=== PATIENT | female | born 1985 | race African-American/Black ===

== ENCOUNTER 2016-09-27 08:00 | Emergency (ER) | payer OTHER ==
[~2016-09-27] VITALS: Ht 165.1 cm; Wt 93.1 kg
[~2016-09-27 08:00] MED LIST: PROT40TA PO
[2016-09-27 08:02] VITALS: BP 142/80; PULSE 99; RESP 15; TEMP 98.2; O2SAT 98
--- NOTE | 2016-09-27 08:19 | PD ---
HPI Chief Complaint: Pain: Acute or Chronic Time Seen by Provider: 08:08 Travel History International Travel<30 days: No Contact w/Intl Traveler<30days: No Traveled to known affect area: No History of Present Illness HPI 31-year-old female complains of painful vein on the right leg, headache. Patient states the symptoms started 2 weeks ago. Patient states the pain is burning pain localized on the medial aspect of the right leg. Patient denies any pain radiation. Patient denies any recent injury. Patient denies any fever chills. Patient denies any chest pain or shortness of breath. Patient denies history of DVT or PE. Patient also complaining the headache for the past 2 weeks. Patient states that headache aching headache diffuse over the head. Patient denies any visual change. Patient denies any neck pain. Patient denies any focal weakness or numbness of extremity. Patient denies any recent head injury. PFSH Past Medical History Hx Anticoagulant Therapy: No Cardiovascular Problems: No Chemotherapy: No Chest Pain: Yes Cerebrovascular Accident: No Diabetes: No Diminished Hearing: No Respiratory: No Immunizations Current: Yes Ulcer: Yes ?: Not LMP: CURRENT : 3 Para: 3 Tubal Ligation: Yes (10/2009) Past Surgical History Gynecologic Surgery: Yes (TUBAL LIGATION OCT 2009) Social History Alcohol Use: No Tobacco Use: Yes (09/24 ppd) Substance Use: No Allergies-Medications (Allergen,Severity, Reaction): Coded Allergies: No Known Allergies (Verified , 09/27/16) Reported Meds & Prescriptions Reported Meds & Active Scripts Active Protonix (Pantoprazole Sodium) 40 Mg Tab 40 Mg PO DAILY Review of Systems General / Constitutional: No: Fever Eyes: No: Visual changes HENT: No: Headaches Cardiovascular: No: Chest Pain or Discomfort Respiratory: No: Shortness of Breath Gastrointestinal: No: Abdominal Pain Genitourinary: No: Dysuria Musculoskeletal: No: Pain Skin: No Rash Neurologic: No: Weakness Psychiatric: No: Depression Endocrine: No: Polydipsia Hematologic/Lymphatic: No: Easy Bruising Physical Exam Narrative GENERAL: Well-nourished, well-developed patient. SKIN: Warm and dry. HEAD: Normocephalic. EYES: No scleral icterus. No injection or drainage. Pupils 3 mm equal reactive. NECK: Supple, trachea midline. No JVD or lymphadenopathy. CARDIOVASCULAR: Regular rate and rhythm without murmurs, gallops, or rubs. RESPIRATORY: Breath sounds equal bilaterally. No accessory muscle use. GASTROINTESTINAL: Abdomen soft, non-tender, nondistended. MUSCULOSKELETAL: No cyanosis, or edema. BACK: Nontender without obvious deformity. No CVA tenderness. Patient has mild diffuse tenderness over medial aspect of the right thigh and right lower leg. No redness no heat noted. The tenderness localized around superficial vein area. Neurologic exam normal. Data Data Last Documented VS Vital Signs Date Time Temp Pulse Resp B/P Pulse Ox O2 Delivery O2 Flow Rate FiO2 09/27/16 10:59 60 16 114/61 100 Room Air 09/27/16 08:02 98.2 Orders Us Leg Venous Doppler (09/27/16 08:14) Electrocardiogram (09/27/16 ) MDM Medical Decision Making Medical Screen Exam Complete: Yes Emergency Medical Condition: Yes Interpretation(s) Last Impressions Lower Extremity Ultrasound 09/27/16 0814 Signed Impressions: Service Date/Time: September 10:09 - CONCLUSION: Normal examination. Terrell Huggins MD Differential Diagnosis Differential diagnosis including phlebitis, superficial thrombophlebitis, DVT. Narrative Course 31-year-old female with painful vein right leg. Diagnosis Primary Impression: Superficial phlebitis Additional Impression: Cephalgia Qualified Code: R51 - Acute nonintractable headache, unspecified headache type Patient Instructions: General Instructions Additional Instructions: Ibuprofen as needed for pain. Advised ROMEO hose stocking. Follow-up with local physician. Return if persistent problem or worse. Med/Other Pt SpecificInfo: Prescription(s) given Scripts Ibuprofen 600 Mg [id number] Mg PO Q8HR PRN (PAIN) #30 TAB Ref 0 Prov:Parvez Aguila MD 09/27/16 Disposition: 01 DISCHARGE HOME Condition: Stable Parvez Aguila MD Sep 27, 2016 08:18
--- NOTE | 2016-09-27 10:52 | RADRPT ---
EXAM DATE/TIME: 09/27/2016 10:09 [facility] COMPARISON: No previous studies available for comparison. INDICATIONS : Right leg pain. MEDICAL HISTORY : Right leg pain. SURGICAL HISTORY : Tubal ligation. ENCOUNTER: Initial ACUITY: 2 weeks PAIN SCORE: 8/10 LOCATION: Right leg. TECHNIQUE: Venous ultrasound of the leg was performed from the inguinal ligament to the proximal calf. Real-froy e, color Doppler and spectral tracing, compression and augmentation techniques were used. FINDINGS: There is normal compressibility of the deep venous system from the inguinal region to the proximal ca lf. No echogenic clot is seen in the lumen of the common femoral, femoral, popliteal, and posterior tibial veins. There is a normal response of the venous system to proximal and distal augmentation an d respiration. CONCLUSION: Normal examination. Terrell Huggins MD on September 27, 2016 at 10:37 Board Certified Radiologist. This report was verified electronically.
[2016-09-27 10:59] VITALS: BP 114/61; PULSE 60; RESP 16; O2SAT 100
--- NOTE | 2016-09-27 11:40 | EKG ---
Date Performed: 09/27/2016 Time Performed: 08:58:32 PTAGE: 31 years EKG: Sinus rhythm NORMAL ECG NO SIGNIFICANT CHANGE FROM PRIOR ELECTROCARDIOGRAM. PREVIOUS TRACING : 03/12/2016 18.11 DOCTOR: Yahir Valles Interpretating Date/Time 09/27/2016 11:38:53
[2016-09-27] MEDS ORDERED: IBUP-232 PO (12:53)
== END 2016-09-27 13:08 | disposition home or self-care (01) ==
LOC: NEPC 08:00
DX: I80.01 Phlebitis and thrombophlebitis of superficial vessels of right lower extremity (principal); R51 Headache; F17.210 Nicotine dependence, cigarettes, uncomplicated
CPT/HCPCS: 93005; 93971

== ENCOUNTER 2016-12-02 23:04 | Emergency (ER) | payer OTHER ==
[~2016-12-02 23:04] MED LIST changes: +IBUP-232 PO
[2016-12-02 23:06] VITALS: BP 115/68; PULSE 83; RESP 16; TEMP 98.3; O2SAT 100
== END 2016-12-03 00:05 | disposition left against medical advice (07) ==
LOC: NED 23:04
DX: R68.89 Other general symptoms and signs (principal)
CPT/HCPCS: 99281

== ENCOUNTER 2016-12-08 07:50 | Emergency (ER) | payer OTHER ==
[~2016-12-08] VITALS: Ht 165.1 cm; Wt 100.0 kg
[2016-12-08 07:52] VITALS: BP 133/69; PULSE 94; RESP 17; TEMP 97.8; O2SAT 96
--- NOTE | 2016-12-08 08:09 | PD ---
HPI . Cough, congestion and sore throat for 1 day Chief Complaint: Cold / Flu Symptoms Time Seen by Provider: 08:09 Travel History International Travel<30 days: No Contact w/Intl Traveler<30days: No Traveled to known affect area: No History of Present Illness HPI 31-year-old female with no significant past medical history here with complaints of cough, congestion and sore throat for 1 day. Patient says she just all of a sudden developed these symptoms. She is coughing frequently. She denies any fever or chills. She was around her friend who is sick. She has no other complaints. She is a smoker. [facility] Past Medical History Hx Anticoagulant Therapy: No Cardiovascular Problems: No Chemotherapy: No Chest Pain: Yes Cerebrovascular Accident: No Diabetes: No Diminished Hearing: No Respiratory: No Immunizations Current: Yes Ulcer: Yes ?: Not : 3 Para: 3 Tubal Ligation: Yes (10/2009) Past Surgical History Gynecologic Surgery: Yes (TUBAL LIGATION OCT 2009) Social History Alcohol Use: No Tobacco Use: Yes (09/24 ppd) Substance Use: No Allergies-Medications (Allergen,Severity, Reaction): Coded Allergies: No Known Allergies (Verified , 09/27/16) Reported Meds & Prescriptions Reported Meds & Active Scripts Active Prednisone 50 Mg Tab 50 Mg PO DAILY Augmentin (Amoxicillin-Clavulanate) 875-125 mg Tab 875 Mg PO BID not for use in CrCl <30 ml/min. Review of Systems General / Constitutional: No: Fever Eyes: No: Visual changes HENT: Positive: Sore Throat, Congestion, No: Headaches Cardiovascular: No: Chest Pain or Discomfort Respiratory: Positive: Cough, No: Shortness of Breath Gastrointestinal: No: Abdominal Pain Genitourinary: No: Dysuria Musculoskeletal: No: Pain Skin: No Rash Neurologic: No: Weakness Psychiatric: No: Depression Endocrine: No: Polydipsia Hematologic/Lymphatic: No: Easy Bruising Physical Exam Narrative GENERAL: AAO x 3, no acute distress, Well-nourished, well-developed patient. very comfortable. Does not appear ill or toxic SKIN: Warm and dry. No visible rashes or bruising. HEAD: Normocephalic and atraumatic. EYES: No scleral icterus. No injection or drainage. EOM intact, PERRLA ENT: No nasal drainage noted. Mucous membranes pink. Airway patent. TMs normal bilaterally. No posterior pharynx erythema or edema, or exudates. There is maxillary sinus tenderness. NECK: Supple, trachea midline. No JVD. No significant lymphadenopathy. CARDIOVASCULAR: Regular rate and rhythm without murmurs, gallops, or rubs. RESPIRATORY: Breath sounds equally diminished bilaterally. No accessory muscle use. No rhonchi or rales. No wheezing. Dry cough heard on examination. GASTROINTESTINAL: Abdomen soft, non-tender, nondistended. EXTREMITIES: No cyanosis or edema. BACK: Nontender without obvious deformity. No CVA tenderness. PSYCH: AAO x 3, normal affect. Data Data Last Documented VS Vital Signs Date Time Temp Pulse Resp B/P Pulse Ox O2 Delivery O2 Flow Rate FiO2 12/08/16 07:52 97.8 94 17 133/69 96 Room Air [facility] Medical Decision Making Medical Screen Exam Complete: Yes Emergency Medical Condition: Yes Medical Record Reviewed: Yes Differential Diagnosis Acute sinusitis, acute bronchitis less likely pneumonia, less likely influenza Narrative Course 31-year-old female with no significant past medical history here with complaints of cough, congestion and sore throat for 1 day. Patient says she just all of a sudden developed these symptoms. She is coughing frequently. She denies any fever or chills. She was around her friend who is sick. She has no other complaints. She is a smoker. Patient seen and examined. She appears to have acute sinusitis and a bronchitis. I will go ahead and treat with antibiotics and prednisone. She has been advised that this cough can last for 6-8 weeks. She was instructed to follow-up with primary care provider. Patient verbalized understanding of instructions, questions were answered, and thanked me for their care. I advised them if their condition worsens, please return to the nearest emergency room for further care. Diagnosis Primary Impression: Acute sinusitis Qualified Code: J01.00 - Acute maxillary sinusitis, recurrence not specified Additional Impression: Acute bronchitis Qualified Code: J20.9 - Acute bronchitis, unspecified organism Patient Instructions: General Instructions Additional Instructions: As we discussed the cough can last 6-8 weeks. Take medications as prescribed. If you are a smoker, try to quit. Follow up with your primary care provider. If you develop sudden onset or worsening of shortness or breath, please go to the nearest emergency room. Please return to emergency department if your symptoms return or worsen. Follow up with your primary care provider. Take medications as prescribed. Med/Other Pt SpecificInfo: Prescription(s) given Scripts Prednisone 50 Mg Tab50 Mg PO DAILY #5 TAB Prov:Tavon Black MD 12/08/16 Amoxicillin-Clavulanate (Augmentin)875-125 mg [id number] Mg PO BID #20 TAB not for use in CrCl <30 ml/min. Prov:Tavon Black MD 12/08/16 Disposition: 01 DISCHARGE HOME Condition: Stable Fior Samson Dec 08, 2016 08:09
[2016-12-08] MEDS ORDERED: PRED50 PO (08:16)
[2016-12-08] MEDS ORDERED: AUGM875T PO (08:16)
== END 2016-12-08 08:32 | disposition home or self-care (01) ==
LOC: NEPB 07:50
DX: J01.90 Acute sinusitis, unspecified (principal); J20.9 Acute bronchitis, unspecified
CPT/HCPCS: 99283

== ENCOUNTER 2017-03-03 00:31 | Emergency (ER) | payer OTHER ==
[~2017-03-03] VITALS: Ht 165.1 cm; Wt 95.6 kg
[~2017-03-03 00:31] MED LIST changes: +AUGM875T PO; -IBUP-232 PO; +PRED50 PO; -PROT40TA PO
[2017-03-03 00:38] VITALS: BP 128/88; PULSE 79; RESP 18; TEMP 98.2; O2SAT 100
[2017-03-03] MEDS ORDERED: ZANT300T PO (00:58)
[2017-03-03] MEDS ORDERED: PRIL20TA2 PO (00:58)
[2017-03-03] MEDS ORDERED: SODIUM CHLORIDE 0.9% FLUSH 10 ML FLUSH IVF PRN (01:00)
[2017-03-03 01:16] LABS: AUTOMATED NEUTROPHIL # 3.7 TH/MM3 (1.8-7.7); BASOPHIL # 0.1 TH/MM3 (0-0.2); BASOPHIL % 1.2 % (0.0-2.0); EOSINOPHIL # 0.5 TH/MM3 (0-0.4); EOSINOPHIL % 5.9 % (0.0-4.0); HEMATOCRIT 43.3 % (35.0-46.0); HEMO FLAGS DIFF FINAL; LYMPH % 39.2 % (9.0-44.0); MEAN CELL VOLUME 93.5 FL (80.0-100.0); MEAN CORPUSCULAR HEMOGLOBIN 31.4 PG (27.0-34.0); MEAN CORPUSCULAR HGB CONC 33.6 % (32.0-36.0); MONO % 5.8 % (0.0-8.0); NEUT % 47.9 % (16.0-70.0); PLATELET COUNT 370 TH/MM3 (150-450); RED BLOOD COUNT 4.63 MIL/MM3 (4.00-5.30); RED CELL DISTRIBUTION WIDTH 12.4 % (11.6-17.2); WHITE BLOOD COUNT 7.8 TH/MM3 (4.0-11.0)
--- NOTE | 2017-03-03 01:16 | PD ---
HPI Chief Complaint: Respiratory Symptoms Time Seen by Provider: 00:57 Travel History International Travel<30 days: No Contact w/Intl Traveler<30days: No Traveled to known affect area: No History of Present Illness HPI 31 year-old female presents to the emergency department by private transportation for complaint of shortness of breath developing just prior to arrival to the emergency department. Symptoms developed at rest. No report of injury. No recent febrile illness or productive cough. Pain worsens with palpation but is not reproducible with palpation of the chest wall. No report of long distance travel protracted bed rest surgical procedure or lower extremity pain or swelling. No personal history family history of clotting disorder. Patient does not report any dyspnea on exertion, orthopnea, or PND. No prior history of CAD HTN dyslipidemia diabetes asthma bronchitis pneumonia or PE. Patient is a no medications for symptom relief. Patient admits to tobacco use. Pain is rated as 5/10 in intensity. Nonradiating. Patient reports feeling near syncopal with associated dyspnea. PFSH Past Medical History Narrative Medical Chest pain; Ab0; tubal ligation; tobaccoism; nursing notes reviewed Hx Anticoagulant Therapy: No Cardiovascular Problems: No Chemotherapy: No Chest Pain: Yes Cerebrovascular Accident: No Diabetes: No Diminished Hearing: No Respiratory: No Immunizations Current: Yes Ulcer: Yes ?: Not LMP: "Last monh" : 3 Para: 3 Tubal Ligation: Yes (10/2009) Past Surgical History Gynecologic Surgery: Yes (TUBAL LIGATION OCT 2009) Social History Alcohol Use: No Tobacco Use: Yes (1 PPD) Substance Use: No Allergies-Medications (Allergen,Severity, Reaction): Coded Allergies: No Known Allergies (Verified , 03/03/17) Reported Meds & Prescriptions Reported Meds & Active Scripts Active Reported Zantac (Ranitidine HCl) 300 Mg Tab 300 Mg PO DAILY Prilosec (Omeprazole Magnesium) 20 Mg Tab 40 Mg PO DAILY Review of Systems Except as stated in HPI: all other systems reviewed are Neg Physical Exam Narrative GENERAL: Well-developed well-nourished female in no acute distress no respiratory distress; no stridor or hoarseness; no accessory respiratory muscle use. Patient able to speak in complete sentences. Triage vital signs within normal range. SKIN: Warm and dry. HEAD: Normocephalic. EYES: No scleral icterus. No injection or drainage. NECK: Supple, trachea midline. No JVD or lymphadenopathy. CARDIOVASCULAR: Regular rate and rhythm without murmurs, gallops, or rubs. RESPIRATORY: Breath sounds equal bilaterally. No accessory muscle use. GASTROINTESTINAL: Abdomen soft, non-tender, nondistended. MUSCULOSKELETAL: No cyanosis, or edema. BACK: Nontender without obvious deformity. No CVA tenderness. Data Data Last Documented VS Vital Signs Date Time Temp Pulse Resp B/P Pulse Ox O2 Delivery O2 Flow Rate FiO2 03/03/17 01:45 86 17 126/70 99 Room Air 03/03/17 00:38 98.2 Orders Electrocardiogram (03/03/17 00:57) Basic Metabolic Panel (Bmp) (03/03/17 00:57) Ckmb (Isoenzyme) Profile (03/03/17 00:57) Complete Blood Count With Diff (03/03/17 00:57) Magnesium (Mg) (03/03/17 00:57) Prothrombin Time / Inr (Pt) (03/03/17 00:57) Act Partial Throm Time (Ptt) (03/03/17 00:57) Troponin I (03/03/17 00:57) Chest, Single Ap (03/03/17 00:57) Ecg Monitoring (03/03/17 00:57) Iv Access Insert/Monitor (03/03/17 00:57) Oximetry (03/03/17 00:57) Sodium Chloride 0.9% Flush (Ns Flush) (03/03/17 01:00) Ed Urine Pregnancytest Poc (03/03/17 00:57) Ketorolac Inj (Toradol Inj) (03/03/17 01:45) CKMB (03/03/17 01:10) CKMB% (03/03/17 01:10) D-Dimer (03/03/17 01:38) Sodium Chlorid 0.9% 500 Ml Inj (Ns 500 M (03/03/17 01:45) Labs Laboratory Tests Test 03/03/17 01:10 White Blood Count 7.8 TH/MM3 Red Blood Count 4.63 MIL/MM3 Hemoglobin 14.6 GM/DL Hematocrit 43.3 % Mean Corpuscular Volume 93.5 FL Mean Corpuscular Hemoglobin 31.4 PG Mean Corpuscular Hemoglobin 33.6 % Concent Red Cell Distribution Width 12.4 % Platelet Count 370 TH/MM3 Mean Platelet Volume 7.3 FL Neutrophils (%) (Auto) 47.9 % Lymphocytes (%) (Auto) 39.2 % Monocytes (%) (Auto) 5.8 % Eosinophils (%) (Auto) 5.9 % Basophils (%) (Auto) 1.2 % Neutrophils # (Auto) 3.7 TH/MM3 Lymphocytes # (Auto) 3.0 TH/MM3 Monocytes # (Auto) 0.5 TH/MM3 Eosinophils # (Auto) 0.5 TH/MM3 Basophils # (Auto) 0.1 TH/MM3 CBC Comment DIFF FINAL Differential Comment Prothrombin Time 9.5 SEC Prothromb Time International 0.9 RATIO Ratio Activated Partial 28.6 SEC Thromboplast Time D-Dimer Quantitative (PE/DVT) LESS THAN 0.19 MG/L FEU Sodium Level 139 MEQ/L Potassium Level 4.7 MEQ/L Chloride Level 104 MEQ/L Carbon Dioxide Level 27.9 MEQ/L Anion Gap 7 MEQ/L Blood Urea Nitrogen 9 MG/DL Creatinine 1.30 MG/DL Estimat Glomerular Filtration 59 ML/MIN Rate Random Glucose 89 MG/DL Calcium Level 8.8 MG/DL Magnesium Level 2.4 MG/DL Total Creatine Kinase 256 U/L Creatine Kinase MB 0.8 NG/ML Creatine Kinase MB % 0.3 % Troponin I LESS THAN 0.02 NG/ML MDM Medical Decision Making Medical Screen Exam Complete: Yes Emergency Medical Condition: Yes Medical Record Reviewed: Yes Interpretation(s) EKG: Normal sinus rhythm rate [address] elevation or injury pattern change or ectopy noted CXR: nad POC hcg: negative CK; 256, elevated; MB%: 0.3%; troponin I: less than 0.02, not elevated Vital Signs Date Time Temp Pulse Resp B/P Pulse Ox O2 Delivery O2 Flow Rate FiO2 03/03/17 01:45 86 17 126/70 99 Room Air 03/03/17 01:12 Room Air 03/03/17 00:52 99 Room Air 03/03/17 00:38 98.2 79 18 128/88 100 CBC & BMP Diagram 03/03/17 01:10 coags: wnl d-dimer: less than 0.19, not elevated Differential Diagnosis Dyspnea, reactive airways disease, bronchitis, pneumonia, PE, ACS, anemia, dehydration, arrhythmia Narrative Course Patient presents in no acute distress no respiratory distress lung sounds clear to auscultation airway is patent room air O2 saturation 99-100%; EKG performed sinus rhythm without injury pattern; chest x-ray ordered along with basic labs Patient resting comfortably voicing no concerns or complaints has received a one -time dose of Toradol IV No discomfort 0/10 pain; no shortness of breath at rest room air O2 saturation 99% Serum creatinine mildly elevated at 1.30 and CK total is elevated at 256 but normal MB percent is 0.3% not elevated Patient informed the EKG reveals no acute injury pattern change; chest x-ray shows no lobar infiltrate effusion of pneumothorax or vascular congestion; lab values in normal range except for renal insufficiency with a creatinine of 1.30 and patient given fluid bolus cardiac enzymes are found to be in normal range except for total CK of 256 most likely reflective of skeletal muscle with normal MB percent of 0.3%. D-dimer is not elevated at less than 0.19. At this point in time symptoms most likely reflect mild dehydration atypical chest pain and patient is stable for outpatient management. Patient given trial of ambulating about the emergency department to see if activity is able to reproduce symptoms of presentation ---> no dyspnea, no discomfort, patient feels well and desires discharge to home. Diagnosis Primary Impression: Shortness of breath Additional Impression: Atypical chest pain Referrals: Primary Care Physician call for appointment Patient Instructions: General Instructions Departure Forms: Tests/Procedures, Work Release Special Instructions: no work x 1 day Additional Instructions: Increase fluid hydration Follow-up with primary care provider No work times one day Return to the emergency department for any concerns or change in condition Monitor temperature every 4 hours with thermometer take as needed acetaminophen/ Tylenol for fever 100.4F or greater or may take as needed ibuprofen/Advil/ Motrin for fever 100.4F or greater or for pain associated with inflammation Med/Other Pt SpecificInfo: No Change to Meds Disposition: 01 DISCHARGE HOME Condition: Stable Leona Winters MD Mar 03, 2017 01:16
--- NOTE | 2017-03-03 01:26 | RADHPO ---
EXAM DATE/TIME: 03/03/2017 01:01 [facility] COMPARISON: CHEST SINGLE AP, March 12, 2016, 18:41. INDICATIONS : Chest pain. MEDICAL HISTORY : None. SURGICAL HISTORY : None. ENCOUNTER: Initial ACUITY: 1 day PAIN SCORE: 5/10 LOCATION: Bilateral chest FINDINGS: A single view of the chest demonstrates the lungs to be symmetrically aerated without evidence of mas s, infiltrate or effusion. The cardiomediastinal contours are unremarkable. Osseous structures are intact. CONCLUSION: No acute disease. Melquiades Hatfield MD on March 03, 2017 at 1:25 Board Certified Radiologist. This report was verified electronically.
[2017-03-03 01:28] LABS: CHLORIDE 104 MEQ/L (98-107); POTASSIUM 4.7 MEQ/L (3.5-5.1); SODIUM (NA) 139 MEQ/L (136-145)
[2017-03-03 01:31] LABS: ANION GAP 7 MEQ/L (5-15); BICARBONATE 27.9 MEQ/L (21.0-32.0); MAGNESIUM 2.4 MG/DL (1.5-2.5)
[2017-03-03 01:32] LABS: BLOOD UREA NITROGEN 9 MG/DL (7-18)
[2017-03-03 01:33] LABS: APTT (PATIENT) 28.6 SEC (24.3-30.1); INTERNATIONAL NORMALIZED RATIO 0.9 RATIO; PROTHROMBIN TIME - PATIENT 9.5 SEC (9.8-11.6)
[2017-03-03 01:35] LABS: GLOMERULAR FILTRATION RATE 59 ML/MIN (>89)
[2017-03-03 01:38] LABS: CREATINE KINASE 256 U/L (26-192)
[2017-03-03 01:45] VITALS: BP 126/70; PULSE 86; RESP 17; O2SAT 99
[2017-03-03] MEDS ORDERED: SODIUM CHLORID 0.9% 500 ML INJ 500 ML IV ONE (01:45)
[2017-03-03] MEDS ORDERED: KETOROLAC TROMETHAMINE 30 MG/ML (IVP) VIAL IV PUSH ONE (01:45)
[2017-03-03 01:50] LABS: CKMB 0.8 NG/ML (0.5-3.6)
[2017-03-03 02:51] VITALS: BP 104/69
[2017-03-03 02:54] VITALS: RESP 17
--- NOTE | 2017-03-03 09:33 | EKG ---
Date Performed: 03/03/2017 Time Performed: 01:05:36 PTAGE: 31 years EKG: Sinus rhythm . Lead(s) unsuitable for analysis: V1 V2 Normal ECG based on available leads NO PREVIOUS TRACING DOCTOR: Javier Osborn Interpretating Date/Time 03/03/2017 09:29:02
== END 2017-03-03 02:59 | disposition home or self-care (01) ==
LOC: PHED 00:31
DX: R06.02 Shortness of breath (principal); R07.89 Other chest pain; R06.00 Dyspnea, unspecified; F17.210 Nicotine dependence, cigarettes, uncomplicated
CPT/HCPCS: 71010; 80048; 82550; 82552; 83735; 84484; 84703; 85025; 85379; 85610; 85730; 93005; 96361; 96374; 99285; J1885; J7040

== ENCOUNTER 2017-04-04 21:26 | Emergency (ER) | payer OTHER ==
[~2017-04-04] VITALS: Ht 165.1 cm; Wt 95.0 kg
[~2017-04-04 21:26] MED LIST changes: -AUGM875T PO; -PRED50 PO; +PRIL20TA2 PO; +ZANT300T PO
[2017-04-04 22:10] VITALS: BP 117/81; PULSE 91; RESP 18; TEMP 98.4; O2SAT 100
[2017-04-04 22:23] VITALS: BP 117/81; PULSE 91; RESP 18; TEMP 98.4; O2SAT 100
[2017-04-04] MEDS ORDERED: HYDROmorphone HCL PF 1 MG/ML VIAL IV PUSH ONE (22:30)
[2017-04-04] MEDS ORDERED: SODIUM CHLOR 0.9% 1000 ML INJ 1,000 ML IV SCH (22:30)
[2017-04-04] MEDS ORDERED: ONDANSETRON HCL 4 MG/2 ML VIAL IV PUSH ONE (22:30)
--- NOTE | 2017-04-04 22:30 | PD ---
HPI Chief Complaint: Abdominal Pain Time Seen by Provider: 22:26 Travel History International Travel<30 days: No Contact w/Intl Traveler<30days: No Traveled to known affect area: No History of Present Illness HPI This 31-year-old female is complaining of abdominal pain. She says that about 2 hours ago she ate some cheesecake. He had a sudden onset of pain and vomited. She has been having some epigastric discomfort since then. She has a history of ulcer disease. There is a strong family history of ulcers. 5-6 months ago she had endoscopy in [place] and was found to have an ulcer. She has descriptions for Prilosec and Zantac but admits to taking them somewhat sporadically. She does not take any anti-inflammatory medicine she does drink occasionally. She has not had alcohol today. She says the pain she is having now is different than her usual pain she is had with her ulcer. Severe and has been fairly persistent. She is not aware of ever having had ultrasound for gallbladder. She is not sexually active with men [facility] Past Medical History Hx Anticoagulant Therapy: No Cardiovascular Problems: No Chemotherapy: No Chest Pain: Yes Cerebrovascular Accident: No Diabetes: No Diminished Hearing: No Respiratory: No Immunizations Current: Yes Ulcer: Yes ?: Unknown : 3 Para: 3 Tubal Ligation: Yes (10/2009) Past Surgical History Gynecologic Surgery: Yes (TUBAL LIGATION OCT 2009) Social History Alcohol Use: No Tobacco Use: Yes (1 PPD) Substance Use: No Allergies-Medications (Allergen,Severity, Reaction): Coded Allergies: No Known Allergies (Verified , 04/04/17) Reported Meds & Prescriptions Reported Meds & Active Scripts Active Reported Zantac (Ranitidine HCl) 300 Mg Tab 300 Mg PO DAILY Prilosec (Omeprazole Magnesium) 20 Mg Tab 40 Mg PO DAILY Review of Systems General / Constitutional: No: Fever, Chills Eyes: No: Diploplia, Blurred Vision HENT: No: Headaches, Vertigo Cardiovascular: No: Chest Pain or Discomfort, Palpitations Respiratory: No: Cough, Shortness of Breath Gastrointestinal: Positive: Nausea, Vomiting, Abdominal Pain Genitourinary: No: Urgency, Nocturia Musculoskeletal: No: Myalgias, Arthralgias Skin: No Rash, No Itching Neurologic: No: Weakness Hematologic/Lymphatic: No: Easy Bruising Physical Exam Narrative GENERAL: Well-developed female SKIN: Focused skin assessment warm/dry. HEAD: Atraumatic. Normocephalic. EYES: Pupils equal and round. No scleral icterus. No injection or drainage. ENT: No nasal bleeding or discharge. Mucous membranes pink and moist. NECK: Trachea midline. No JVD. CARDIOVASCULAR: Regular rate and rhythm. No murmur appreciated. RESPIRATORY: No accessory muscle use. Clear to auscultation. Breath sounds equal bilaterally. GASTROINTESTINAL: Abdomen soft, is epigastric tenderness nondistended. Hepatic and splenic margins not palpable. MUSCULOSKELETAL: No obvious deformities. No clubbing. No cyanosis. No edema. NEUROLOGICAL: Awake and alert. No obvious cranial nerve deficits. Motor grossly within normal limits. Normal speech. PSYCHIATRIC: Appropriate mood and affect; insight and judgment normal. Data Data Last Documented VS Vital Signs Date Time Temp Pulse Resp B/P Pulse Ox O2 Delivery O2 Flow Rate FiO2 04/04/17 23:23 18 04/04/17 23:16 79 111/64 96 Room Air 04/04/17 22:23 98.4 Orders Complete Blood Count With Diff (04/04/17 22:26) Comprehensive Metabolic Panel (04/04/17 22:26) Lipase (04/04/17 22:26) Urinalysis - C+S If Indicated (04/04/17 22:26) Ct Abd/Pel W Iv Contrast(Rout) (04/04/17 22:26) Sodium Chlor 0.9% 1000 Ml Inj (Ns 1000 M (04/04/17 22:30) Ondansetron Inj (Zofran Inj) (04/04/17 22:30) Hydromorphone Pf Inj (Dilaudid Pf Inj) (04/04/17 22:30) Iohexol 350 Inj (Omnipaque 350 Inj) (04/04/17 23:33) Labs Laboratory Tests Test 04/04/17 22:50 White Blood Count 7.8 TH/MM3 Red Blood Count 4.14 MIL/MM3 Hemoglobin 13.1 GM/DL Hematocrit 38.1 % Mean Corpuscular Volume 92.1 FL Mean Corpuscular Hemoglobin 31.6 PG Mean Corpuscular Hemoglobin 34.3 % Concent Red Cell Distribution Width 11.8 % Platelet Count 346 TH/MM3 Mean Platelet Volume 7.3 FL Neutrophils (%) (Auto) 56.8 % Lymphocytes (%) (Auto) 27.0 % Monocytes (%) (Auto) 7.3 % Eosinophils (%) (Auto) 4.4 % Basophils (%) (Auto) 4.5 % Neutrophils # (Auto) 4.4 TH/MM3 Lymphocytes # (Auto) 2.1 TH/MM3 Monocytes # (Auto) 0.6 TH/MM3 Eosinophils # (Auto) 0.3 TH/MM3 Basophils # (Auto) 0.4 TH/MM3 CBC Comment DIFF FINAL Differential Comment Sodium Level 141 MEQ/L Potassium Level 3.5 MEQ/L Chloride Level 106 MEQ/L Carbon Dioxide Level 27.6 MEQ/L Anion Gap 7 MEQ/L Blood Urea Nitrogen 11 MG/DL Creatinine 0.94 MG/DL Estimat Glomerular Filtration 85 ML/MIN Rate Random Glucose 89 MG/DL Calcium Level 8.9 MG/DL Total Bilirubin 0.5 MG/DL Aspartate Amino Transf 20 U/L (AST/SGOT) Alanine Aminotransferase 36 U/L (ALT/SGPT) Alkaline Phosphatase 56 U/L Total Protein 7.5 GM/DL Albumin 3.7 GM/DL Lipase 135 U/L [facility] Medical Decision Making Medical Screen Exam Complete: Yes Emergency Medical Condition: Yes Medical Record Reviewed: Yes Differential Diagnosis Differential includes gastritis, ulcer disease, pancreatitis, biliary colic Narrative Course Lipase is normal. Liver function tests are normal. CT scan does not show any evidence of free air. Gallbladder appears normal. She was noted to have some abnormality in the liver a low density lesion in the nodular enhancement that further workup is not recommended Patient was given pain medication with improvement. The importance that she take her Zantac and Prilosec on a regular basis was stressed to the patient Diagnosis Primary Impression: Peptic ulcer disease Departure Forms: Tests/Procedures Additional Instructions: Take medications as directed Scripts Ondansetron Odt (Zofran Odt)4 Mg Tab4 Mg SL Q6HR PRN (Nausea/Vomiting) #10 TAB Ref 0 Prov:Chuy Haro MD 04/04/17 Disposition: 01 DISCHARGE HOME Condition: Stable Chuy Haro MD Apr 04, 2017 22:30
[2017-04-04 23:08] LABS: AUTOMATED NEUTROPHIL # 4.4 TH/MM3 (1.8-7.7); BASOPHIL # 0.4 TH/MM3 (0-0.2); BASOPHIL % 4.5 % (0.0-2.0); EOSINOPHIL # 0.3 TH/MM3 (0-0.4); EOSINOPHIL % 4.4 % (0.0-4.0); HEMATOCRIT 38.1 % (35.0-46.0); HEMO FLAGS DIFF FINAL; LYMPHOCYTE # 2.1 TH/MM3 (1.0-4.8); MEAN CELL VOLUME 92.1 FL (80.0-100.0); MEAN CORPUSCULAR HEMOGLOBIN 31.6 PG (27.0-34.0); MEAN CORPUSCULAR HGB CONC 34.3 % (32.0-36.0); MONO % 7.3 % (0.0-8.0); NEUT % 56.8 % (16.0-70.0); PLATELET COUNT 346 TH/MM3 (150-450); RED BLOOD COUNT 4.14 MIL/MM3 (4.00-5.30); RED CELL DISTRIBUTION WIDTH 11.8 % (11.6-17.2); WHITE BLOOD COUNT 7.8 TH/MM3 (4.0-11.0)
[2017-04-04 23:16] VITALS: BP 111/64; PULSE 79; RESP 16; O2SAT 96
[2017-04-04 23:16] LABS: CHLORIDE 106 MEQ/L (98-107); POTASSIUM 3.5 MEQ/L (3.5-5.1); SODIUM (NA) 141 MEQ/L (136-145)
[2017-04-04 23:20] LABS: ANION GAP 7 MEQ/L (5-15); BICARBONATE 27.6 MEQ/L (21.0-32.0); BLOOD UREA NITROGEN 11 MG/DL (7-18)
[2017-04-04 23:22] LABS: ALT (GPT) 36 U/L (10-53)
[2017-04-04 23:23] VITALS: RESP 18
[2017-04-04 23:23] LABS: AST (GOT) 20 U/L (15-37); GLOMERULAR FILTRATION RATE 85 ML/MIN (>89)
[2017-04-04 23:24] LABS: TOTAL BILIRUBIN ADULT 0.5 MG/DL (0.2-1.0)
[2017-04-04 23:25] LABS: ALKALINE PHOSPHATASE 56 U/L (45-117)
[2017-04-04] MEDS ORDERED: IOHEXOL 350 MG/ML 10 ML VIAL (for RAD DIAG) IV ONE (23:33)
--- NOTE | 2017-04-04 23:40 | RADRPT ---
EXAM DATE/TIME: 04/04/2017 22:52 [facility] COMPARISON: CT ABDOMEN & PELVIS W/O CONTRAST, August 14, 2016, 1:46. INDICATIONS : Epigastric pain with vomiting IV CONTRAST: 96 cc Omnipaque 350 (iohexol) IV ORAL CONTRAST: No oral contrast ingested. RADIATION DOSE: 16.22 CTDIvol (mGy) MEDICAL HISTORY : None SURGICAL HISTORY : Tubal ligation. ENCOUNTER: Initial ACUITY: 1 day PAIN SCALE: 9/10 LOCATION: medial epigastral TECHNIQUE: Volumetric scanning of the abdomen and pelvis was performed. Using automated exposure control and ad justment of the mA and/or kV according to patient size, radiation dose was kept as low as reasonably achievable to obtain optimal diagnostic quality images. DICOM format image data is available electro nically for review and comparison. FINDINGS: A 1.7 cm low-density mass in the central liver with peripheral nodular enhancement felt to represent a hemangioma is identified. 4 mm low-density right lobe lesion and a 4 mm low-density right lobe lesi on on image 27. Adrenal glands, kidneys, spleen, pancreas are unremarkable. No inflammatory changes a re seen. The appendix is normal. No adenopathy or aneurysm. Urinary bladder, uterus and ovaries are u nremarkable. Small amount of free fluid in the pelvis. No evidence of bowel obstruction or free intra peritoneal air. Small fat-containing right inguinal hernia. Lung bases are clear. Osseous structures are intact. CONCLUSION: 1. Small amount of free fluid in the pelvis. 2. 3. Right lobe low density lesion of the liver with nodular enhancement, and two low density sub5mm le sions No further work-up is generally needed for incidentally detected benign-appearing liver lesion s in low risk individuals, including lesions exhibiting flash filling. This patient is classified as low risk based on the reported history, including age <40 and absence of hepatic risk factors/sympto ms. These general recommendations do not apply to all patients, so that correlation with clinical in formation is required. Reference: 4. Ramila LL, Mana SG, Priscilla RM et al; Managing Incidental Findings on Abdominal CT: Luci hurt of the ACR Incidental Findings Committee. J Am Inocente Radiol 2010;7:754-773.. 5. No inflammatory changes are identified in the abdomen or pelvis. Victor Manuel Fitch MD on April 04, 2017 at 23:33 Board Certified Radiologist. This report was verified electronically.
[2017-04-04] MEDS ORDERED: ZOFR4TAB3 SL (23:45)
== END 2017-04-05 00:24 | disposition home or self-care (01) ==
LOC: PHED 21:26
DX: K27.9 Peptic ulcer, site unspecified, unspecified as acute or chronic, without hemorrhage or perforation (principal)
CPT/HCPCS: 74177; 80053; 83690; 85025; 96361; 96374; 96375; 99285; J1170; J2405; J7030; Q9967

== ENCOUNTER 2017-05-13 10:38 | Emergency (ER) | payer OTHER ==
[~2017-05-13] VITALS: Ht 165.1 cm; Wt 97.0 kg
[~2017-05-13 10:38] MED LIST changes: +ZOFR4TAB3 SL
[2017-05-13 10:50] VITALS: BP 130/61; PULSE 83; RESP 16; TEMP 97.8; O2SAT 98
[2017-05-13] MEDS ORDERED: INDO50CA PO (12:00)
--- NOTE | 2017-05-13 12:00 | PD ---
HPI Chief Complaint: Musculoskeletal Complaint Time Seen by Provider: 11:48 Travel History International Travel<30 days: No Contact w/Intl Traveler<30days: No Traveled to known affect area: No History of Present Illness HPI 31-year-old female presents to the emergency room for evaluation of left knee pain and swelling for the past 2 days. Patient denies any trauma or injury. States she woke up with pain 2 days ago and the swelling started yesterday. Pain is generalized. It is worse with any ambulation and range of motion. She has been taking Tylenol without relief of symptoms. She put a knee brace on which helped the swelling a little bit. She denies paresthesias. No history of gout or pseudogout. PFSH Past Medical History Hx Anticoagulant Therapy: No Cardiovascular Problems: No Chemotherapy: No Chest Pain: Yes Cerebrovascular Accident: No Diabetes: No Diminished Hearing: No Respiratory: No Immunizations Current: Yes Ulcer: Yes ?: Not LMP: 05/02/17 : 3 Para: 3 Tubal Ligation: Yes (10/2009) Past Surgical History Surgical History: No Previous Surgery Gynecologic Surgery: Yes (TUBAL LIGATION OCT 2009) Social History Alcohol Use: No Tobacco Use: Yes (1 PPD) Substance Use: No Allergies-Medications (Allergen,Severity, Reaction): Coded Allergies: No Known Allergies (Verified , 05/13/17) Reported Meds & Prescriptions Reported Meds & Active Scripts Active No Active Prescriptions or Reported Medications Review of Systems Except as stated in HPI: all other systems reviewed are Neg Physical Exam Narrative GENERAL: Well-nourished, well-developed female in no acute distress. Afebrile. Ambulatory. SKIN: Focused skin assessment warm/dry. No erythema or ecchymosis. HEAD: Normocephalic. EYES: No scleral icterus. No injection or drainage. NECK: Supple, trachea midline. No JVD or lymphadenopathy. CARDIOVASCULAR: Regular rate and rhythm without murmurs, gallops, or rubs. RESPIRATORY: Breath sounds equal bilaterally. No accessory muscle use. MUSCULOSKELETAL: No cyanosis. 2+ dorsalis pedis pulse in the left. No obvious effusion. Very mild edema of the left knee. Limited range of motion of the knee secondary to pain; patient has full extension and can flex to approximately 75. Negative anterior and posterior short test. No pain with varus stress. Slight pain with valgus stress. Data Data Last Documented VS Vital Signs Date Time Temp Pulse Resp B/P (MAP) Pulse Ox O2 Delivery O2 Flow Rate FiO2 05/13/17 10:50 97.8 83 16 130/61 (84) 98 MDM Medical Decision Making Medical Screen Exam Complete: Yes Emergency Medical Condition: Yes Medical Record Reviewed: Yes Differential Diagnosis Sprain, strain, arthritis, malingering, fracture unlikely Narrative Course 31-year-old female presents to the emergency room for evaluation of left knee pain and swelling for the past 2 days. Patient denies trauma or injury. Physical exam reveals very mild swelling of the left knee without erythema, ecchymosis, or obvious effusion. No bony tenderness to palpation. Patient has limited range of motion secondary pain. No concern for septic arthritis. Left lower extremity is neurovascularly intact with 2+ dorsalis pedis pulse. Given no injury and very mild edema, this could be inflammatory arthritis. No indication for imaging at this time. Patient discharged with prescription for indomethacin and orthopedic instructions. Told to follow-up the primary care physician or return for worsening symptoms. She understands and agrees to plan. Diagnosis Primary Impression: Left knee pain Qualified Codes: M25.562 - Pain in left knee Referrals: Primary Care Physician Departure Forms: Tests/Procedures, Work Release Enter return to work date: May 15, 2017 Additional Instructions: Rest and drink plenty of fluids. Take indomethacin with food as directed, as needed for pain. Apply brace and ice to the affected area for 20 minutes at a time, as needed for pain and swelling. Follow-up with a primary care physician. Return to the emergency room for worsening symptoms. Med/Other Pt SpecificInfo: Prescription(s) given Scripts No Active Prescriptions or Reported Meds Disposition: 01 DISCHARGE HOME Condition: Stable Jannie Casas May 13, 2017 12:00
== END 2017-05-13 12:18 | disposition home or self-care (01) ==
LOC: PHEFT 10:38
DX: M25.562 Pain in left knee (principal)
CPT/HCPCS: 99283

== ENCOUNTER 2017-06-15 09:32 | Emergency (ER) | payer OTHER ==
[~2017-06-15] VITALS: Ht 165.1 cm; Wt 92.0 kg
[2017-06-15 09:32] VITALS: BP 120/75; PULSE 92; RESP 20; TEMP 98.3; O2SAT 98
[~2017-06-15 09:32] MED LIST changes: +INDO50CA PO; -PRIL20TA2 PO; -ZANT300T PO; -ZOFR4TAB3 SL
[2017-06-15] MEDS ORDERED: PRIL20TA2 PO (09:40)
[2017-06-15] MEDS ORDERED: ZANT300T PO (09:41)
--- NOTE | 2017-06-15 10:07 | PD ---
HPI . Headache Chief Complaint: Headache Time Seen by Provider: 10:00 Travel History International Travel<30 days: No Contact w/Intl Traveler<30days: No Traveled to known affect area: No History of Present Illness HPI Patient presents for evaluation of acute headache. It started at 7:30 this morning. It suddenly. It is located on the left side behind her left eye. She describes the pain as feeling as if her head is going to explode. She rates the pain as 7/10. Pain is exacerbated by light and relieved by darkness. Pain is associated with nausea. She took Tylenol at the onset without relief. She subsequently presents to us for treatment. She does state that she has had a previous similar headache. [facility] Past Medical History Hx Anticoagulant Therapy: No Cardiovascular Problems: No Chemotherapy: No Chest Pain: Yes Cerebrovascular Accident: No Diabetes: No Diminished Hearing: No Headaches: Yes Respiratory: No Immunizations Current: Yes Ulcer: Yes Influenza Vaccination: Yes ?: Not : 3 Para: 3 Tubal Ligation: Yes (10/2009) Past Surgical History Gynecologic Surgery: Yes (TUBAL LIGATION OCT 2009) Social History Alcohol Use: No Tobacco Use: Yes (1 PPD) Substance Use: No Allergies-Medications (Allergen,Severity, Reaction): Coded Allergies: No Known Allergies (Verified , 06/15/17) Reported Meds & Prescriptions Reported Meds & Active Scripts Active Reported Zantac (Ranitidine HCl) 300 Mg Tab 300 Mg PO DAILY Prilosec (Omeprazole Magnesium) 20 Mg Tab 1 Tab PO DAILY Review of Systems Except as stated in HPI: all other systems reviewed are Neg General / Constitutional: No: Fever, Chills Eyes: Positive: Photophobia HENT: Positive: Headaches Gastrointestinal: Positive: Nausea Physical Exam Narrative GENERAL: Patient is lying in a darkened room with a sheet over her eyes. SKIN: warm/dry. No rashes. HEAD: Normocephalic. Positive left scalp tenderness. EYES: Pupils equal and round. No scleral icterus. No injection or drainage. ENT: No nasal bleeding or discharge. Mucous membranes pink and moist. NECK: Trachea midline. Full range of motion without pain.. CARDIOVASCULAR: Regular rate and rhythm. RESPIRATORY: No accessory muscle use. MUSCULOSKELETAL: No obvious deformities. NEUROLOGICAL: Awake and alert. No obvious cranial nerve deficits. Motor grossly within normal limits. Normal speech. PSYCHIATRIC: Appropriate mood and affect; insight and judgment normal. Data Data Last Documented VS Vital Signs Date Time Temp Pulse Resp B/P (MAP) Pulse Ox O2 Delivery O2 Flow Rate FiO2 06/15/17 10:00 17 98 Room Air 06/15/17 09:32 98.3 92 120/75 (90) Orders Orders Iv Access Insert/Monitor (06/15/17 10:03) Sodium Chloride 0.9% Flush (Ns Flush) (06/15/17 10:15) Prochlorperazine Inj (Compazine Inj) (06/15/17 10:15) Diphenhydramine Inj (Benadryl Inj) (06/15/17 10:15) MDM Medical Decision Making Medical Screen Exam Complete: Yes Emergency Medical Condition: Yes Differential Diagnosis Differential diagnosis of headache includes but is not limited to migraine, muscle contraction headache, brain tumor, brain bleed Narrative Course This patient presents with an acute headache. She has a benign neurological examination. She does not have any concerning signs or symptoms such as fever or stiff neck. Following medication, this patient is sound asleep in no distress. She will be discharged home. 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
[2017-06-15] MEDS ORDERED: PROCHLORPERAZINE INJ 10 MG/2 ML VIAL IVP ONE (10:15)
[2017-06-15] MEDS ORDERED: SODIUM CHLORIDE 0.9% FLUSH 10 ML FLUSH IVF PRN (10:15)
[2017-06-15] MEDS ORDERED: diphenhydrAMINE HCL 50 MG/ML VIAL IVP ONE (10:15)
[2017-06-15 11:08] VITALS: BP 108/79; TEMP 97.8
== END 2017-06-15 11:10 | disposition home or self-care (01) ==
LOC: NEPD 09:32
DX: G44.039 Episodic paroxysmal hemicrania, not intractable (principal); F17.210 Nicotine dependence, cigarettes, uncomplicated
CPT/HCPCS: 96374; 96375; 99284; J0780; J1200

== ENCOUNTER 2017-09-29 20:48 | Emergency (ER) | payer OTHER ==
[~2017-09-29] VITALS: Ht 165.1 cm; Wt 93.0 kg
[~2017-09-29 20:48] MED LIST changes: -INDO50CA PO; +PRIL20TA2 PO; +ZANT300T PO
[2017-09-29 20:49] VITALS: BP 128/74; PULSE 100; RESP 16; TEMP 98
[2017-09-29] MEDS ORDERED: SODIUM CHLOR 0.9% 1000 ML INJ 1,000 ML IV SCH (21:06)
--- NOTE | 2017-09-29 21:13 | PD ---
HPI Chief Complaint: GI Complaint Time Seen by Provider: 21:01 Travel History International Travel<30 days: No Contact w/Intl Traveler<30days: No Traveled to known affect area: No History of Present Illness HPI This patient was examined in the presence of a female nurse. 32-year-old female with history of peptic ulcer disease presents for evaluation of nausea, vomiting, diarrhea, abdominal pain. Symptoms started this morning. She reports multiple episodes of nonbloody nonbilious emesis throughout the day as well as several episodes of watery diarrhea. She reports a crampy abdominal pain primarily in the periumbilical and epigastric region. She does report that she was able to eat fish and chips this morning as well as Sandra cheese steak during the course of today. She was able to tolerate some lisy [place]. She denies fevers, chills, flank pain, dysuria, increased urinary frequency, vaginal bleeding or discharge. She has no other complaints at this time. PFSH Past Medical History Hx Anticoagulant Therapy: No Cardiovascular Problems: No Chemotherapy: No Chest Pain: Yes Cerebrovascular Accident: No Diabetes: No Diminished Hearing: No Headaches: Yes Medical other: Yes (STOMACH ULCERS ) Respiratory: No Immunizations Current: Yes Ulcer: Yes ?: Not : 3 Para: 3 Tubal Ligation: Yes (10/2009) Past Surgical History Gynecologic Surgery: Yes (TUBAL LIGATION OCT 2009) Social History Alcohol Use: No Tobacco Use: Yes (1 PPD) Substance Use: Yes (marijuana ) Allergies-Medications (Allergen,Severity, Reaction): Coded Allergies: No Known Allergies (Verified Adverse Reaction, Unknown, 09/29/17) Reported Meds & Prescriptions Reported Meds & Active Scripts Active Zofran (Ondansetron HCl) 4 Mg Tab 4 Mg PO Q6HR PRN Reported Zantac (Ranitidine HCl) 300 Mg Tab 300 Mg PO DAILY Prilosec (Omeprazole Magnesium) 20 Mg Tab 1 Tab PO DAILY Review of Systems Except as stated in HPI: all other systems reviewed are Neg Physical Exam Narrative GENERAL: Well-developed well-nourished female in no acute distress SKIN: Warm and dry. HEAD: Atraumatic. Normocephalic. EYES: Pupils equal and round. No scleral icterus. No injection or drainage. ENT: No nasal bleeding or discharge. Mucous membranes pink and moist. NECK: Trachea midline. No JVD. CARDIOVASCULAR: Regular rate and rhythm. No murmur appreciated. RESPIRATORY: No accessory muscle use. Clear to auscultation. Breath sounds equal bilaterally. GASTROINTESTINAL: Abdomen soft, very mild tenderness to palpation in the right periumbilical and epigastric regions without guarding. There is no tenderness to palpation over McBurney's point, negative Rovsing's, negative Benito's, no right upper quadrant tenderness. There Is no CVA tenderness. MUSCULOSKELETAL: No obvious deformities. No clubbing. No cyanosis. No edema. NEUROLOGICAL: Awake and alert. No obvious cranial nerve deficits. Motor grossly within normal limits. Normal speech. PSYCHIATRIC: Appropriate mood and affect; insight and judgment normal. Data Data Last Documented VS Vital Signs Date Time Temp Pulse Resp B/P (MAP) Pulse Ox O2 Delivery O2 Flow Rate FiO2 09/29/17 21:24 100 Room Air 09/29/17 20:49 98.0 100 16 Orders Orders Complete Blood Count With Diff (09/29/17 21:06) Comprehensive Metabolic Panel (09/29/17 21:06) Lipase (09/29/17 21:06) Urinalysis - C+S If Indicated (09/29/17 21:06) Iv Access Insert/Monitor (09/29/17 21:06) Ecg Monitoring (09/29/17 21:06) Oximetry (09/29/17 21:06) Ondansetron Inj (Zofran Inj) (09/29/17 21:15) Pantoprazole Inj (Protonix Inj) (09/29/17 21:15) Sodium Chlor 0.9% 1000 Ml Inj (Ns 1000 M (09/29/17 21:06) Sodium Chloride 0.9% Flush (Ns Flush) (09/29/17 21:15) Al-Mag Hy-Si 40-40-4 Mg/Ml Liq (Mag-Al P (09/29/17 21:15) Lidocaine 2% Viscous (Xylocaine 2% Visco (09/29/17 21:15) Ed Urine Pregnancytest Poc (09/29/17 21:06) Potassium Chloride (Kcl) (09/29/17 22:45) Labs Laboratory Tests Test 09/29/17 21:28 09/29/17 22:09 White Blood Count 5.3 TH/MM3 Red Blood Count 4.42 MIL/MM3 Hemoglobin 14.1 GM/DL Hematocrit 41.7 % Mean Corpuscular Volume 94.2 FL Mean Corpuscular Hemoglobin 31.8 PG Mean Corpuscular Hemoglobin Concent 33.8 % Red Cell Distribution Width 12.2 % Platelet Count 286 TH/MM3 Mean Platelet Volume 8.0 FL Neutrophils (%) (Auto) 68.6 % Lymphocytes (%) (Auto) 17.6 % Monocytes (%) (Auto) 11.5 % Eosinophils (%) (Auto) 1.9 % Basophils (%) (Auto) 0.4 % Neutrophils # (Auto) 3.7 TH/MM3 Lymphocytes # (Auto) 0.9 TH/MM3 Monocytes # (Auto) 0.6 TH/MM3 Eosinophils # (Auto) 0.1 TH/MM3 Basophils # (Auto) 0.0 TH/MM3 CBC Comment DIFF FINAL Differential Comment Blood Urea Nitrogen 12 MG/DL Creatinine 1.10 MG/DL Random Glucose 90 MG/DL Total Protein 7.7 GM/DL Albumin 3.8 GM/DL Calcium Level 8.7 MG/DL Alkaline Phosphatase 54 U/L Aspartate Amino Transf (AST/SGOT) 13 U/L Alanine Aminotransferase (ALT/SGPT) 22 U/L Total Bilirubin 0.5 MG/DL Sodium Level 138 MEQ/L Potassium Level 3.3 MEQ/L Chloride Level 108 MEQ/L Carbon Dioxide Level 22.3 MEQ/L Anion Gap 8 MEQ/L Estimat Glomerular Filtration Rate 71 ML/MIN Lipase 76 U/L Urine Color YELLOW Urine Turbidity HAZY Urine pH 6.0 Urine Specific Leon 1.041 Urine Protein 30 mg/dL Urine Glucose (UA) NEG mg/dL Urine Ketones NEG mg/dL Urine Occult Blood TRACE Urine Nitrite NEG Urine Bilirubin NEG Urine Urobilinogen 2.0 MG/DL Urine Leukocyte Esterase NEG Urine RBC 3 /hpf Urine WBC 2 /hpf Urine Squamous Epithelial Cells 9 /hpf Urine Amorphous Sediment RARE Urine Mucus MANY /lpf Microscopic Urinalysis Comment CULT NOT INDICATED MDM Medical Decision Making Medical Screen Exam Complete: Yes Emergency Medical Condition: Yes Medical Record Reviewed: Yes Differential Diagnosis Gastroenteritis, peptic ulcer disease, pancreatitis, appendicitis, colitis, diverticulitis, obstruction, ovarian torsion Narrative Course 32-year-old female with history of peptic ulcer disease presents with one-day history of nausea, vomiting, diarrhea, abdominal pain. Physical examination is reassuring. She does not appear acutely dehydrated. Her abdomen is soft with a very benign examination. She has mild epigastric and right periumbilical tenderness on examination. She has no right upper quadrant or right lower quadrant tenderness. I suspect gastroenteritis. Plan is for basic lab work. She'll be given a GI cocktail, Protonix, IV fluids, Zofran. Upon reexamination the patient reports that her pain has resolved. She has been able to tolerate oral hydration in the form of lisy [place] and she reports that her nausea is resolved. Her lab work has been reviewed. Her CBC is unremarkable. Her urine test is negative. Her CMP reveals a potassium of 3.3, she'll be given oral potassium chloride discharge. Her creatinine is 1.1 with a normal BUN. Her lipase is normal. The patient will be discharged with a short course of Zofran for likely viral gastroenteritis. Diagnosis Primary Impression: Gastroenteritis Additional Instructions: Soft diet for the next 1-2 days and slowly advance diet as tolerated. Zofran for nausea. Return for any acutely new or worsening symptoms such as intractable nausea and vomiting, dehydration, severe abdominal pain Med/Other Pt SpecificInfo: Prescription(s) given Scripts Ondansetron (Zofran) 4 Mg Tab 4 MG PO Q6HR Y for NAUSEA OR VOMITING, #20 TAB 0 Refills Prov: Syl Sherwood MD 09/29/17 Disposition: 01 DISCHARGE HOME Condition: Stable Jarret Merrill Sep 29, 2017 21:13
[2017-09-29] MEDS ORDERED: PANTOPRAZOLE SODIUM 40 MG VIAL IVP ONE (21:15)
[2017-09-29] MEDS ORDERED: LIDOCAINE VISCOUS 2% SOLN 15 ML UDC PO ONE (21:15)
[2017-09-29] MEDS ORDERED: SODIUM CHLORIDE 0.9% FLUSH 10 ML FLUSH IV FLUSH PRN (21:15)
[2017-09-29] MEDS ORDERED: ONDANSETRON HCL 4 MG/2 ML VIAL IVP ONE (21:15)
[2017-09-29] MEDS ORDERED: ALUMINUM/MAGNESIUM/SIMETH 30 ML CUP PO ONE (21:15)
[2017-09-29 21:24] VITALS: O2SAT 100
[2017-09-29 22:13] LABS: AUTOMATED NEUTROPHIL # 3.7 TH/MM3 (1.8-7.7); BASOPHIL % 0.4 % (0.0-2.0); EOSINOPHIL # 0.1 TH/MM3 (0-0.4); EOSINOPHIL % 1.9 % (0.0-4.0); HEMATOCRIT 41.7 % (35.0-46.0); HEMOGLOBIN 14.1 GM/DL (11.6-15.3); LYMPH % 17.6 % (9.0-44.0); LYMPHOCYTE # 0.9 TH/MM3 (1.0-4.8); MEAN CELL VOLUME 94.2 FL (80.0-100.0); MEAN CORPUSCULAR HEMOGLOBIN 31.8 PG (27.0-34.0); MEAN CORPUSCULAR HGB CONC 33.8 % (32.0-36.0); MONO % 11.5 % (0.0-8.0); MONOCYTE # 0.6 TH/MM3 (0-0.9); NEUT % 68.6 % (16.0-70.0); PLATELET COUNT 286 TH/MM3 (150-450); RED BLOOD COUNT 4.42 MIL/MM3 (4.00-5.30); RED CELL DISTRIBUTION WIDTH 12.2 % (11.6-17.2); WHITE BLOOD COUNT 5.3 TH/MM3 (4.0-11.0)
[2017-09-29] MEDS ORDERED: ZOFR4TAB PO (22:25)
[2017-09-29 22:40] LABS: AMORPHOUS SEDIMENT, URINE RARE; BLOOD, URINE TRACE (NEG); GLUCOSE,URINE NEG (NEG); KETONE, URINE NEG (NEG); MUCUS URINE MANY /lpf (OCC); NITRITE,URINE NEG (NEG); SQUAMOUS EPITHELIAL CELL URINE 9 /hpf (0-5); URINE COLOR YELLOW (YELLW/STRAW); URINE LEUKOCYTE ESTERASE NEG (NEG)
[2017-09-29 22:40] LABS: ALBUMIN 3.8 GM/DL (3.4-5.0); AST (GOT) 13 U/L (15-37); BICARBONATE 22.3 MEQ/L (21.0-32.0); BLOOD UREA NITROGEN 12 MG/DL (7-18); CALCIUM 8.7 MG/DL (8.5-10.1); CHLORIDE 108 MEQ/L (98-107); GLOMERULAR FILTRATION RATE 71 ML/MIN (>89); GLUCOSE,RANDOM 90 MG/DL (74-106); LIPASE 76 U/L (73-393); SODIUM (NA) 138 MEQ/L (136-145)
[2017-09-29 22:41] LABS: ALT (GPT) 22 U/L (10-53)
[2017-09-29 22:41] LABS: BILIRUBIN, URINE NEG (NEG)
[2017-09-29 22:43] LABS: ALKALINE PHOSPHATASE 54 U/L (45-117); TOTAL BILIRUBIN ADULT 0.5 MG/DL (0.2-1.0); TOTAL PROTEIN 7.7 GM/DL (6.4-8.2)
[2017-09-29] MEDS ORDERED: POTASSIUM CHLORIDE 20 MEQ CONTROLLED RELEASE TAB PO ONE (22:45)
== END 2017-09-29 22:55 | disposition home or self-care (01) ==
LOC: NEPE 20:48
DX: K52.9 Noninfective gastroenteritis and colitis, unspecified (principal); F17.200 Nicotine dependence, unspecified, uncomplicated; Z79.899 Other long term (current) drug therapy
CPT/HCPCS: 80053; 81001; 83690; 84703; 85025; 96361; 96374; 96375; 99284; C9113; J2405; J7030

== ENCOUNTER 2017-11-29 23:31 | Emergency (ER) | payer OTHER ==
[~2017-11-29] VITALS: Ht 165.1 cm; Wt 90.0 kg
[~2017-11-29 23:31] MED LIST changes: +ZOFR4TAB PO
[2017-11-29 23:42] VITALS: BP 122/59; PULSE 86; RESP 20; TEMP 98.4; O2SAT 100
--- NOTE | 2017-11-30 00:50 | PD ---
HPI Chief Complaint: Injury Time Seen by Provider: 00:38 Travel History International Travel<30 days: No Contact w/Intl Traveler<30days: No Traveled to known affect area: No History of Present Illness HPI 32-year-old female presents for evaluation of right forearm pain. She reports that this evening she tripped and fell, landed on her right forearm. She now has pain in her right forearm which is aching and worse with movement. Denies any numbness or tingling. She does have limited range of motion. She denies any other injuries and she has no other complaints at this time. [facility] Past Medical History Hx Anticoagulant Therapy: No Cardiovascular Problems: No Chemotherapy: No Chest Pain: Yes Cerebrovascular Accident: No Diabetes: No Diminished Hearing: No Headaches: Yes Respiratory: No Immunizations Current: Yes Ulcer: Yes ?: Not : 3 Para: 3 Tubal Ligation: Yes (10/2009) Past Surgical History Gynecologic Surgery: Yes (TUBAL LIGATION OCT 2009) Social History Alcohol Use: No Tobacco Use: Yes (1 PPD) Substance Use: Yes (marijuana ) Allergies-Medications (Allergen,Severity, Reaction): Coded Allergies: No Known Allergies (Verified Adverse Reaction, Unknown, 11/29/17) Reported Meds & Prescriptions Reported Meds & Active Scripts Active Zofran (Ondansetron HCl) 4 Mg Tab 4 Mg PO Q6HR PRN Reported Zantac (Ranitidine HCl) 300 Mg Tab 300 Mg PO DAILY Prilosec (Omeprazole Magnesium) 20 Mg Tab 1 Tab PO DAILY Review of Systems Musculoskeletal: Positive: Limited ROM, Pain Skin: Positive Other (Denies open wounds) Physical Exam Narrative GENERAL: Well-developed well-nourished female no acute distress SKIN: Warm and dry. HEAD: Atraumatic. Normocephalic. EYES: Pupils equal and round. No scleral icterus. No injection or drainage. ENT: No nasal bleeding or discharge. Mucous membranes pink and moist. NECK: Trachea midline. No JVD. CARDIOVASCULAR: Regular rate and rhythm. No murmur appreciated. RESPIRATORY: No accessory muscle use. Clear to auscultation. Breath sounds equal bilaterally. GASTROINTESTINAL: Abdomen soft, non-tender, nondistended. Hepatic and splenic margins not palpable. MUSCULOSKELETAL: Generalized tenderness to palpation to the right forearm. The patient has limited supination, pronation, flexion, extension of the right wrist. There is no tenderness to palpation to the right hand or elbow or proximal arm. Distal sensation is preserved in the median, radial and ulnar nerve distributions. 2+ radial pulse. NEUROLOGICAL: Awake and alert. No obvious cranial nerve deficits. Motor grossly within normal limits. Normal speech. Data Data Last Documented VS Vital Signs Date Time Temp Pulse Resp B/P (MAP) Pulse Ox O2 Delivery O2 Flow Rate FiO2 11/29/17 23:42 98.4 86 20 122/59 (80) 100 Orders Orders Forearm (2vws) (11/30/17 ) Ed Discharge Order (11/30/17 02:11) Splint Or Brace Apply/Monitor (11/30/17 02:11) MDM Medical Decision Making Medical Screen Exam Complete: Yes Emergency Medical Condition: Yes Medical Record Reviewed: Yes Differential Diagnosis Forearm fracture, contusion, sprain, strain Narrative Course Forearm x-ray was obtained revealing no acute abnormality's. The patient will be discharged with a Velcro wrist splint. Diagnosis Primary Impression: Wrist sprain Additional Instructions: Follow-up with primary care physician in 2 weeks. Return for any emergent medical conditions. Med/Other Pt SpecificInfo: No Change to Meds Disposition: 01 DISCHARGE HOME Condition: Stable Jarret Merrill Nov 30, 2017 00:50
--- NOTE | 2017-11-30 01:39 | RADRPT ---
EXAM DATE/TIME: 11/30/2017 00:55 [facility] COMPARISON: No previous studies available for comparison. INDICATIONS : Fall. Right mid forearm pain. MEDICAL HISTORY : None. SURGICAL HISTORY : None. ENCOUNTER: Initial ACUITY: 1 day PAIN SCORE: 9/10 LOCATION: Right upper extremity FINDINGS: Two view examination of the right forearm demonstrates no evidence of fracture or dislocation. Bony mineralization is normal. The soft tissue structures are intact. CONCLUSION: Intact right forearm. Terrell Elam MD on November 30, 2017 at 1:37 Board Certified Radiologist. This report was verified electronically.
[2017-11-30] MEDS ORDERED: IBUPROFEN 800 MG TAB PO ONE (02:30)
[2017-12-01] MEDS ORDERED: HYDR-3516 PO (01:03)
[2017-12-01] MEDS ORDERED: IBUP1TAB7 PO (01:03)
== END 2017-11-30 02:36 | disposition home or self-care (01) ==
LOC: NEPD 23:31
DX: S63.501A Unspecified sprain of right wrist, initial encounter (principal); F17.200 Nicotine dependence, unspecified, uncomplicated; F12.90 Cannabis use, unspecified, uncomplicated; W01.0XXA Fall on same level from slipping, tripping and stumbling without subsequent striking against object, initial encounter
CPT/HCPCS: 73090; 99283; L3908

== ENCOUNTER 2017-11-30 23:29 | Emergency (ER) | payer OTHER ==
[~2017-11-30] VITALS: Ht 165.1 cm; Wt 90.7 kg
[2017-11-30 23:32] VITALS: BP 114/65; PULSE 86; RESP 18; TEMP 97.8; O2SAT 100
--- NOTE | 2017-12-01 00:14 | PD ---
HPI Chief Complaint: Injury Time Seen by Provider: 00:10 Travel History International Travel<30 days: No Contact w/Intl Traveler<30days: No Traveled to known affect area: No History of Present Illness HPI 32-year-old female presents to the emergency department complaining of elbow pain with swelling. Patient states yesterday while running she had a non- syncopal trip and fall from a standing height injuring her right elbow. Patient states she went to the emergency room and was imaged for her wrist and given a splint but states her right wrist is not her area of injury or pain and presents now because of persistent elbow pain. Patient rates pain 9/10 intensity. PFSH Past Medical History Narrative Medical Chest pain headaches tubal ligation tobacco use marijuana use; nursing notes reviewed Hx Anticoagulant Therapy: No Cardiovascular Problems: No Chemotherapy: No Chest Pain: Yes Cerebrovascular Accident: No Diabetes: No Diminished Hearing: No Headaches: Yes Respiratory: No Immunizations Current: Yes Ulcer: Yes ?: Unknown LMP: 11/14 : 3 Para: 3 Tubal Ligation: Yes (10/2009) Past Surgical History Gynecologic Surgery: Yes (TUBAL LIGATION OCT 2009) Social History Alcohol Use: No (SOCIAL) Tobacco Use: Yes (1 PPD) Substance Use: Yes (marijuana ) Allergies-Medications (Allergen,Severity, Reaction): Coded Allergies: No Known Allergies (Verified Adverse Reaction, Unknown, 11/29/17) Reported Meds & Prescriptions Reported Meds & Active Scripts Active Review of Systems Except as stated in HPI: all other systems reviewed are Neg Physical Exam Narrative GENERAL: Well-developed well-nourished female no acute distress no respiratory distress; GCS 15 SKIN: Warm and dry. HEAD: Normocephalic. EYES: No scleral icterus. No injection or drainage. NECK: Supple, trachea midline. No JVD or lymphadenopathy. CARDIOVASCULAR: Regular rate and rhythm without murmurs, gallops, or rubs. RESPIRATORY: Breath sounds equal bilaterally. No accessory muscle use. GASTROINTESTINAL: Abdomen soft, non-tender, nondistended. MUSCULOSKELETAL: No cyanosis, or edema. Attention right upper extremity soft tissue swelling with decreased range of motion of the right elbow without deformity distal extremities neurovascular tendon intact capillary refill is brisk and less than 2 seconds per digit thumb apposition is intact digits are neurovascular tendon intact BACK: Nontender without obvious deformity. No CVA tenderness. Data Data Last Documented VS Vital Signs Date Time Temp Pulse Resp B/P (MAP) Pulse Ox O2 Delivery O2 Flow Rate FiO2 12/01/17 00:02 20 99 11/30/17 23:32 97.8 86 114/65 (81) Orders Orders Elbow, Complete (4 Vws) (12/01/17 ) Ibuprofen (Motrin) (12/01/17 00:45) MDM Medical Decision Making Medical Screen Exam Complete: Yes Emergency Medical Condition: Yes Medical Record Reviewed: Yes Interpretation(s) Vital Signs Date Time Temp Pulse Resp B/P (MAP) Pulse Ox O2 Delivery O2 Flow Rate FiO2 12/01/17 00:02 20 99 11/30/17 23:32 97.8 86 18 114/65 (81) 100 right elbow xr: Occult radial head fracture due to sail sign and effusion Differential Diagnosis Sprain strain subluxation dislocation fracture Narrative Course Imaging of the right elbow performed Patient informed of imaging study consistent with occult fracture of the radial head sling applied patient given ibuprofen for pain relief as well as one-time Lortab 5/325; patient encouraged to follow-up with orthopedic surgeon and given a prescription for pain medication and weight-based ibuprofen Diagnosis Primary Impression: Occult fracture of elbow Qualified Codes: S42.401A - Unspecified fracture of lower end of right humerus , initial encounter for closed fracture Referrals: Orthopaedic Surgeon 2 days Sales Representative Facility Services MD: Dr Centeno Patient Instructions: General Instructions Additional Instructions: Wear sling Follow-up with orthopedist Take pain medication as prescribed as needed Return to the emergency department for concerns or change in condition May use ice intermittently for first 12-24 hours Med/Other Pt SpecificInfo: Prescription(s) given Scripts Hydrocodone-Acetaminophen (Hydrocodone-Acetaminophen) 5-325 mg Tab 1 TAB PO Q6H Y for PAIN, #8 TAB 0 Refills Prov: Leona Winters MD 12/01/17 Ibuprofen (Ibuprofen) 800 Mg Tab 800 MG PO Q8H Y for Pain/Inflammation, #12 TAB 0 Refills Prov: Leona Winters MD 12/01/17 Disposition: 01 DISCHARGE HOME Condition: Stable Leona Winters MD Dec 01, 2017 00:14
[2017-12-01] MEDS ORDERED: IBUPROFEN 800 MG TAB PO ONE (00:45)
--- NOTE | 2017-12-01 00:47 | RADRPT ---
EXAM DATE/TIME: 12/01/2017 00:16 [facility] COMPARISON: FOREARM RIGHT (2VWS), November 30, 2017, 0:55. INDICATIONS : Right elbow pain post fall. MEDICAL HISTORY : None. SURGICAL HISTORY : Tubal ligation. ENCOUNTER: Initial ACUITY: 2 days PAIN SCORE: 9/10 LOCATION: Right upper extremity FINDINGS: No perceptible fracture but there is a large right elbow joint effusion and probably indicates an occ ult fracture. Statistically in a patient this age this most likely involves the radial head. No sublu xation. CONCLUSION: Probable occult intra-articular fracture. No displaced fracture is seen. Please see above. Terrell Elam MD on December 01, 2017 at 0:45 Board Certified Radiologist. This report was verified electronically.
[2017-12-01] MEDS ORDERED: IBUP1TAB7 PO (01:03)
[2017-12-01] MEDS ORDERED: HYDR-3516 PO (01:03)
[2017-12-01] MEDS ORDERED: ACETAMINOPHEN/HYDROcodone 325 MG/5 MG TAB PO ONE (01:15)
[2017-12-01 05:40] VITALS: BP 129/74
== END 2017-12-01 05:51 | disposition home or self-care (01) ==
LOC: PHED 23:29
DX: S42.401A Unspecified fracture of lower end of right humerus, initial encounter for closed fracture (principal); F17.200 Nicotine dependence, unspecified, uncomplicated; W01.0XXA Fall on same level from slipping, tripping and stumbling without subsequent striking against object, initial encounter; Y93.02 Activity, running
CPT/HCPCS: 73080; 99283

== ENCOUNTER 2018-02-07 10:55 | Inpatient (IN) | payer MEDICAID, OTHER ==
[~2018-02-07] VITALS: Ht 165.1 cm; Wt 90.0 kg
[~2018-02-07 10:55] MED LIST changes: +HYDR-3516 PO; +IBUP1TAB7 PO; -PRIL20TA2 PO; -ZANT300T PO; -ZOFR4TAB PO
[2018-02-07 11:10] VITALS: BP 104/66; PULSE 94; RESP 18; TEMP 97.3; O2SAT 98
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
[2018-02-07] MEDS ORDERED: LORazepam 1 MG TAB PO ONE (12:00)
[2018-02-07 12:34] LABS: AUTOMATED NEUTROPHIL # 4.5 TH/MM3 (1.8-7.7); BASOPHIL % 0.6 % (0.0-2.0); EOSINOPHIL # 0.3 TH/MM3 (0-0.4); HEMATOCRIT 40.6 % (35.0-46.0); HEMOGLOBIN 13.5 GM/DL (11.6-15.3); LYMPH % 23.9 % (9.0-44.0); LYMPHOCYTE # 1.7 TH/MM3 (1.0-4.8); MEAN CELL VOLUME 94.4 FL (80.0-100.0); MEAN CORPUSCULAR HEMOGLOBIN 31.4 PG (27.0-34.0); MEAN CORPUSCULAR HGB CONC 33.3 % (32.0-36.0); MEAN PLATELET VOLUME 7.4 FL (7.0-11.0); MONO % 8.2 % (0.0-8.0); MONOCYTE # 0.6 TH/MM3 (0-0.9); NEUT % 63.3 % (16.0-70.0); PLATELET COUNT 385 TH/MM3 (150-450); RED CELL DISTRIBUTION WIDTH 13.1 % (11.6-17.2); WHITE BLOOD COUNT 7.2 TH/MM3 (4.0-11.0)
[2018-02-07 13:05] LABS: ALKALINE PHOSPHATASE 61 U/L (45-117); ALT (GPT) 17 U/L (10-53); AST (GOT) 11 U/L (15-37); BICARBONATE 22.3 MEQ/L (21.0-32.0); BLOOD UREA NITROGEN 9 MG/DL (7-18); CALCIUM 8.6 MG/DL (8.5-10.1); CHLORIDE 114 MEQ/L (98-107); CREATININE 1.01 MG/DL (0.50-1.00); GLOMERULAR FILTRATION RATE 78 ML/MIN (>89); GLUCOSE,RANDOM 83 MG/DL (74-106); SODIUM (NA) 145 MEQ/L (136-145); TOTAL BILIRUBIN ADULT 0.3 MG/DL (0.2-1.0); TOTAL PROTEIN 7.7 GM/DL (6.4-8.2)
[2018-02-07 16:13] VITALS: BP 109/67; PULSE 82; RESP 17; O2SAT 100
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
[2018-02-07] MEDS ORDERED: ACETAMINOPHEN 325 MG TAB PO PRN (17:15)
[2018-02-07] MEDS ORDERED: NICOTINE 21 MG/24 HR PATCH T-DERMAL PRN (17:15)
[2018-02-07] MEDS ORDERED: BENZTROPINE MESYLATE 2 MG/2 ML VIAL IM PRN (17:15)
[2018-02-07] MEDS ORDERED: BENZTROPINE MESYLATE 1 MG TAB PO PRN (17:15)
[2018-02-07] MEDS ORDERED: MAGNESIUM HYDROXIDE SUSP 30 ML CUP PO PRN (17:15)
[2018-02-07] MEDS ORDERED: ALUMINUM/MAGNESIUM/SIMETH 30 ML CUP PO PRN (17:15)
[2018-02-07 19:25] VITALS: BP 126/75; PULSE 66; TEMP 97.8; O2SAT 97
[2018-02-07] MEDS ORDERED: REMOVE OLD NICODERM (NICOTINE) PATCH T-DERMAL PRN (21:00)
[2018-02-07] MEDS: QUEtiapine FUMARATE 25 MG TAB PO SCH (21:44)
[2018-02-07] MEDS: hydrOXYzine HCL 50 MG TAB PO PRN (21:44)
[2018-02-08 05:58] VITALS: BP 110/67; PULSE 64; RESP 17; TEMP 97.3; O2SAT 97
[2018-02-08 10:48] LABS: BICARBONATE 23.8 MEQ/L (21.0-32.0); BLOOD UREA NITROGEN 8 MG/DL (7-18); CALCIUM 8.4 MG/DL (8.5-10.1); CHLORIDE 110 MEQ/L (98-107); CREATININE 0.91 MG/DL (0.50-1.00); GLOMERULAR FILTRATION RATE 88 ML/MIN (>89); GLUCOSE,RANDOM 70 MG/DL (74-106); SODIUM (NA) 143 MEQ/L (136-145)
[2018-02-08 10:52] LABS: CHOLESTEROL 138 MG/DL (120-200); LDL CHOLESTEROL 42 MG/DL (0-99); TRIGLYCERIDES 49 MG/DL (42-150)
--- NOTE | 2018-02-08 11:17 | EKG ---
Date Performed: 02/08/2018 Time Performed: 10:27:31 PTAGE: 32 years EKG: SINUS BRADYCARDIA NONSPECIFIC T-WAVE ABNORMALITY BORDERLINE ECG PREVIOUS TRACING : 03/03/2017 01.05 Since the previous tracing, no significant change noted DOCTOR: Grant Ndiaye Interpretating Date/Time 02/08/2018 11:15:23
[2018-02-08 11:33] LABS: HEMOGLOBIN A1C 4.6 % (4.3-6.0)
--- NOTE | 2018-02-08 12:53 | HHI.PYPN ---
Subjective Chief Complaint: Depression, suicidal ideation Remarks Pt seen and discussed with staff. Chart reviewed. Yesterday pt was admitted to [facility] secondary to bipolar depression and suicidal ideation. She was started on a titration of seroquel and is compliant with medication. Today pt has been participating in unit activities. She became agitated on unit (screaming yelling slamming doors) and requested an additional dose of seroquel to 'calm down". Mood is labile. Mental Status Examination Appearance: Appropriate Consciousness: Alert Orientation: x4 Motor Activity: Normal gait Speech: Unremarkable Language: Adequate Fund of Knowledge: Adequate Attention and Concentration: Adequate Memory: Unremarkable (Grossly intact on clinical exam) Mood: Irritable Affect: Irritable, Labile Thought Process & Associations: Intact, Linear Thought Content: Appropriate Hallucination Type: None Delusion Type: None Suicidal Ideation: Yes Suicidal Plan: No Suicidal Intention: No (No reported urge to hurt self on an inpatient unit) Homicidal Ideation: No Homicidal Plan: No Homicidal Intention: No Insight: Poor Judgment: Impulsive Results Labs Test 02/08/18 08:25 Blood Urea Nitrogen 8 MG/DL Creatinine 0.91 MG/DL Random Glucose 70 MG/DL Calcium Level 8.4 MG/DL Sodium Level 143 MEQ/L Potassium Level 3.3 MEQ/L Chloride Level 110 MEQ/L Carbon Dioxide Level 23.8 MEQ/L Anion Gap 9 MEQ/L Estimat Glomerular Filtration Rate 88 ML/MIN Hemoglobin A1c 4.6 % Triglycerides Level 49 MG/DL Cholesterol Level 138 MG/DL LDL Cholesterol 42 MG/DL HDL Cholesterol 86.0 MG/DL Cholesterol/HDL Ratio 1.60 RATIO Vitals/IOs Vital Signs Date Time Temp Pulse Resp B/P (MAP) Pulse Ox O2 Delivery O2 Flow Rate FiO2 02/08/18 05:58 97.3 64 17 110/67 (81) 97 02/07/18 16:13 Room Air Assessment & Plan Problem List: (1) Bipolar affective disorder, depressed, moderate ICD Codes: F31.32 - Bipolar disorder, current episode depressed, moderate (2) Post-traumatic stress disorder, chronic ICD Codes: F43.12 - Post-traumatic stress disorder, chronic (3) Marijuana use ICD Codes: F12.90 - Cannabis use, unspecified, uncomplicated Assessment & Plan Continue seroquel titration. Continue hospitalization for safety. Estimated LOS : days Justification for Cont. Inpt. impairments in safety Request HC Surrog/Guard Advoc?: No Sophie Kennedy MD February 08, 2018 12:53
[2018-02-08] MEDS ORDERED: QUEtiapine FUMARATE 25 MG TAB PO ONE (13:15)
[2018-02-08 16:30] VITALS: BP 116/71; PULSE 85; RESP 17; TEMP 99.4; O2SAT 99
[2018-02-08] MEDS: ZOLPIDEM TARTRATE 5 MG TAB PO PRN (21:41)
[2018-02-08] MEDS: QUEtiapine FUMARATE 25 MG TAB PO SCH (21:41)
[2018-02-09 05:59] VITALS: BP 123/76; PULSE 66; RESP 16; TEMP 97.7; O2SAT 97
--- NOTE | 2018-02-09 11:39 | HHI.PYPN ---
Subjective Chief Complaint: Depression, suicidal ideation Remarks Pt seen and discussed with staff. She has been demanding discharge and has been cursing and agitated during phone calls. She has been taking medications without side effect. Last night, pt slept better. She c/o of racing thoughts but reports improving with seroquel titration. No SI/HI Mental Status Examination Appearance: Appropriate Consciousness: Alert Orientation: x4 Motor Activity: Normal gait Speech: Unremarkable Language: Adequate Fund of Knowledge: Adequate Attention and Concentration: Adequate Memory: Unremarkable (Grossly intact on clinical exam) Mood: Irritable Affect: Irritable, Labile Thought Process & Associations: Intact, Linear Thought Content: Appropriate Hallucination Type: None Delusion Type: None Suicidal Ideation: Yes Suicidal Plan: No Suicidal Intention: No (No reported urge to hurt self on an inpatient unit) Homicidal Ideation: No Homicidal Plan: No Homicidal Intention: No Insight: Poor Judgment: Impulsive Results Vitals/IOs Vital Signs Date Time Temp Pulse Resp B/P (MAP) Pulse Ox O2 Delivery O2 Flow Rate FiO2 02/09/18 05:59 97.7 66 16 123/76 (92) 97 02/07/18 16:13 Room Air Assessment & Plan Problem List: (1) Bipolar affective disorder, depressed, moderate ICD Codes: F31.32 - Bipolar disorder, current episode depressed, moderate (2) Post-traumatic stress disorder, chronic ICD Codes: F43.12 - Post-traumatic stress disorder, chronic (3) Marijuana use ICD Codes: F12.90 - Cannabis use, unspecified, uncomplicated Assessment & Plan Continue current tx plan Estimated LOS: days Justification for Cont. Inpt. impairments in safety Request HC Surrog/Guard Advoc?: Sophie Askew MD February 09, 2018 11:39
[2018-02-09] MEDS: hydrOXYzine HCL 50 MG TAB PO PRN ×2 (15:07→21:41)
[2018-02-09 17:45] VITALS: BP 119/58; PULSE 65; RESP 16; TEMP 98.1; O2SAT 100
[2018-02-09] MEDS: QUEtiapine FUMARATE 25 MG TAB PO SCH (21:37)
[2018-02-10 06:46] VITALS: BP 106/59; PULSE 50; RESP 18; TEMP 97.8; O2SAT 97
[2018-02-10] MEDS: hydrOXYzine HCL 50 MG TAB PO PRN ×3 (10:33→21:16)
[2018-02-10] MEDS ORDERED: LORazepam 2 MG TAB PO ONE (15:00)
--- NOTE | 2018-02-10 15:46 | PD.TTN ---
Patient Problems 1. Discharge planning 2. Medication compliance 3. Knowledge deficit 4. Lack of coping skills Progress Toward Goals Provider Present: Dr. Raji Carter Provider Input: 02/10/18 New pt with history of bipolar disorder, depression, and PTSD Psychiatric Counselors Present: Faby Dixon LCSW, Lilliam Terry, [facility], Elin Monsivais, [facility] Psych Therapist Input: 02/10/18 New pt Group Spec/RT/OT/AVILA Present: MARGARITA Hudson, Basilio Espino, OT Group Spec/RT/OT/AVILA Input: 02/10/18 New pt Rand Green/Azra February 10, 2018 15:46
[2018-02-10 15:54] VITALS: BP 116/92; PULSE 94; RESP 18; TEMP 97; O2SAT 100
--- NOTE | 2018-02-10 17:23 | HHI.PYPN ---
Subjective Chief Complaint: Depression, suicidal ideation Remarks Patient seen for follow-up, chart reviewed. Discussion with nursing staff reported patient with episodes of crying, anger and wanting discharge. Patient was found in day room, noted to be irritable during interview when speaking of discharge. Patient staates that she had come to the hospital because she was having a bad day at home and felt she needed help. She mentions of having had a "breakdown" and felt she needed help. Patient was reminded that titration of medications requires safe adjustments and recommendations of further hospitalization to optimize her treatment was reviewed with patient which patient appeared to understand but was having difficulty with tolerating her frustrations being on the unit. Patient signed right of release. Review of Systems Except as stated in HPI: all other systems reviewed are Neg Mental Status Examination Appearance: Appropriate Consciousness: Alert Orientation: x4 Motor Activity: Normal gait Speech: Unremarkable Language: Adequate Fund of Knowledge: Adequate Attention and Concentration: Adequate Memory: Unremarkable (Grossly intact on clinical exam) Mood: Irritable Affect: Irritable, Labile Thought Process & Associations: Intact, Linear Thought Content: Appropriate Hallucination Type: None Delusion Type: None Suicidal Ideation: No Suicidal Plan: No Suicidal Intention: No Homicidal Ideation: No Homicidal Plan: No Homicidal Intention: No Insight: Poor Judgment: Impulsive Results Vitals/IOs Vital Signs Date Time Temp Pulse Resp B/P (MAP) Pulse Ox O2 Delivery O2 Flow Rate FiO2 02/10/18 15:54 97.0 94 18 116/92 (100) 100 02/07/18 16:13 Room Air Assessment & Plan Problem List: (1) Bipolar affective disorder, depressed, moderate ICD Codes: F31.32 - Bipolar disorder, current episode depressed, moderate (2) Post-traumatic stress disorder, chronic ICD Codes: F43.12 - Post-traumatic stress disorder, chronic (3) Marijuana use ICD Codes: F12.90 - Cannabis use, unspecified, uncomplicated Assessment & Plan Patent with labile mood and behavior which related directly with poor frustration tolerance to the meliu of the unit, being in a locked unit. She has denied SI since admission and has not engaged in any self injurious behavior nor made any comments of thoughts of self harm. Patient has quetiapine titration with target dose of 300-400mg for mood stabilization. Will increase quetiapine to 50mg daily and 200mg HS for mood stabilization. Continue to monitor mood and behavior. Stock Feeder met with patient's significant other and her mother and explained the treatment plan which they agreed with. Discharge planning in progress. Justification for Cont. Inpt. At risk for further decompensation at lower level of care. Request HC Surrog/Guard Advoc?: Mannie Wesley MD February 10, 2018 17:23
[2018-02-10] MEDS ORDERED: QUEtiapine FUMARATE 200 MG TAB PO SCH (21:00)
[2018-02-10] MEDS: ZOLPIDEM TARTRATE 5 MG TAB PO PRN (21:16)
[2018-02-11 06:47] VITALS: BP 102/60; PULSE 51; RESP 16; TEMP 96.7; O2SAT 100
[2018-02-11] MEDS ORDERED: QUEtiapine FUMARATE 25 MG TAB PO SCH (09:00)
[2018-02-11] MEDS ORDERED: QUET1TAB9 PO (11:12)
[2018-02-11] MEDS ORDERED: QUET5TAB PO (11:12)
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
== END 2018-02-11 12:06 | disposition home or self-care (01) | DRG 885 ==
LOC: NEPD 10:55 → NEDA 17:08 → H270 21:06
PROVIDERS: ADMIT Student in an Organized Health Care Education/Training Program; ATTEND Student in an Organized Health Care Education/Training Program
DX: F31.32 Bipolar disorder, current episode depressed, moderate (principal); R45.851 Suicidal ideations; F12.90 Cannabis use, unspecified, uncomplicated; Z91.5 Personal history of self-harm; F43.12 Post-traumatic stress disorder, chronic; F17.210 Nicotine dependence, cigarettes, uncomplicated
CPT/HCPCS: 80048; 80053; 80061; 80307; 83036; 84443; 84703; 85025; 93005; 99285

== ENCOUNTER 2018-08-24 15:23 | Observation (INO) ==
[2018-08-24] MEDS ORDERED: Sod Chloride 0.9% Inj 1,000 ML IV.SIG ONE (15:41)
--- NOTE | 2018-08-24 15:58 | ED ---
HPI General Chief Complaint: Syncope Stated Complaint: high blood pressure complaint Time Seen by Provider: 08/24/18 15:30 Source: patient Mode of arrival: EMS Limitations: no limitations History of Present Illness HPI Narrative: Ms Ware is a 32 year old female who presents to the ED for evaluation after a syncopal episode. The patient states that she was having her hair braided and felt hot, nauseous, and dizzy, then she lost consciousness for a brief period of time. She was sitting when this happened. She states she had one other episode of this several weeks ago that was similar, and she was told she was hypotensive and bradycardic most likely related to dehydration. The patient states that she has only eaten a small snack today but has been drinking water. She also states that she ate cashews last night, which gave her diarrhea this morning. This is normal for her, but she did have 5 episodes of diarrhea before the syncopal episode. She denies vomiting, headache, vision changes, slurring of speech, chest pain, palpitations, SOB, cough, hematochezia , or abdominal pain. She denies any PMH or medications. She states her LMP was the second week of July and she is not sexually active. The patient smokes 1 /2 pack of cigarettes per day, smokes marijuana every day, but denies alcohol use. Related Data Home Medications Medication Instructions Recorded Confirmed No Known Home Medications 08/24/18 08/24/18 Allergies Allergy/AdvReac Type Severity Reaction Status Date / Time No Known Allergies Allergy Verified 08/24/18 15:34 Review of Systems ROS: all other systems reviewed are negative [facility] Medical History Medical History Bipolar depression (Acute) Patient denies medical problems (Acute) Surgical History Surgical History Hx of tubal ligation (Acute) Social History Social History Substance History: Active Abuse Second Hand Smoke Exposure: Yes Smoking Status: Current every day smoker Tobacco Type: Cigarettes How Often Do You Have a Drink Containing Alcohol: Never Recent Travel in [place] within the Last 8 Weeks: No Recent Out of Country Travel within the Last 8 Weeks: No Substance Abuse Detail Marijuana: Substance Use Status: Active Route Used Substance Abuse: Inhalation Substance Frequency: TODAY, ABOUT 3 HOURS AGO Immunization History Tetanus Immunization: Unsure Exam Narrative Exam Narrative: GENERAL: Well developed well nourished female in NAD. SKIN: Warm and dry. HEAD: Atraumatic. Normocephalic. EYES: Pupils equal and round. No scleral icterus. No injection or drainage. ENT: No nasal bleeding or discharge. Mucous membranes pink and moist. NECK: Trachea midline. No JVD. CARDIOVASCULAR: Bradycardic. Regular rhythm. No murmurs rubs or gallops. RESPIRATORY: No accessory muscle use. Clear to auscultation. Breath sounds equal bilaterally. GASTROINTESTINAL: Abdomen soft, non-tender, nondistended. Hepatic and splenic margins not palpable. MUSCULOSKELETAL: Extremities without clubbing, cyanosis, or edema. No obvious deformities. Full ROM in upper and lower extremities bilaterally. @+ pulses in the upper and lower extremities bilaterally. NEUROLOGICAL: Awake and alert. No obvious cranial nerve deficits. Motor grossly within normal limits. Five out of 5 muscle strength in the arms and legs. Normal speech. Sensation intact to the upper and lower in the distal extremities. PSYCHIATRIC: Appropriate mood and affect; insight and judgment normal. Course Initial Documented Vital Signs Temperature 97.7 F 08/24/18 15:27 Pulse Rate 64 08/24/18 15:27 Respiratory Rate 18 08/24/18 15:27 Blood Pressure 95/61 L 08/24/18 15:27 Pulse Oximetry 98 08/24/18 15:27 Last Documented Vital Signs Temperature 98.6 F 08/25/18 08:00 Pulse Rate 60 08/25/18 09:00 Respiratory Rate 18 08/25/18 08:00 Blood Pressure 112/67 08/25/18 08:00 Pulse Oximetry 99 08/25/18 08:00 Medical Decision Making PETERSON Attestation PETERSON supervised visit: Yes Attestation: I, Dr. Prince, have reviewed the advance practice practitioner's documentation and am in agreement, met with the patient face to face, made the diagnosis, and the medical decision making was done by me. *My assessment and Findings: This young lady presents with a second syncopal episode within the last 2 weeks. At her initial presentation 2 weeks ago, the syncope was attributed to dehydration. Her symptoms improved with IV fluids. This time, her symptoms did not improve with IV fluids. It is her second syncopal event in a short period of time. She is being admitted for further evaluation and treatment. See Kj Espinoza note for a more detailed H&P, final diagnosis and disposition MDM Narrative Medical decision making narrative: 32-year-old female that presents to the ED for evaluation of syncope. Patient was properly examined and was found to have signs and symptoms consistent with appears to be syncope. Unclear etiology at this time. I did review the medical records and she was here less than 2 weeks ago for the same. This time apparently she had a syncopal episode with sitting. She was told to follow with primary care doctor to have a Holter monitor but she never did. Labs and imaging will be ordered here. Did not see a need for another CAT scan of the head as patient has no neurological deficits and just had a CAT scan less than 2 weeks ago. Patient agrees with this. Labs and imaging were done. Labs and imaging were essentially unremarkable. Orthostatics were within normal limits. Patient was given fluids. Patient still not feeling better. Last time she was here she was given fluid with improvement of symptoms. At this is a second time that this patient has come for the same at this time she had a syncopal episode while sitting at the recommend admission for further evaluation. My attending Dr. Prince was made aware of this and agrees with this plan. Case was discussed with Dr. Aguirre who agrees to admission to his service. Medical Screen Exam Complete: Yes Emergency Medical Condition: Yes Differential Diagnosis Differential Diagnosis: Syncope versus dehydration versus orthostatic hypotension versus head injury versus ACS Medical Records Medical records reviewed: Yes I reviewed the patient's medical records. Lab Data Lab results reviewed: Yes I reviewed the patient's lab results. Result diagrams: 08/25/18 04:24 08/25/18 04:24 POC Results POC Urine Results Negative Lab Results 08/24/18 08/24/18 08/24/18 Range/Units 15:51 16:02 16:02 WBC 6.1 (4.0-11.0) th/mm3 RBC 3.91 L (4.00-5.30) mil/mm3 Hgb 14.0 (11.6-15.3) gm/dL Hct 39.0 (35.0-46.0) % MCV 99.8 (80.0-100.0) fL MCH 35.7 H (27.0-34.0) pg MCHC 35.8 (32.0-36.0) % RDW 13.0 (11.6-17.2) % Plt Count 248 (150-450) th/mm3 MPV 7.4 (7.0-11.0) fL Neut % (Auto) 39.8 (16.0-70.0) % Lymph % (Auto) 48.6 H (9.0-44.0) % [place] % (Auto) 6.4 (0.0-8.0) % Eos % (Auto) 4.2 H (0.0-4.0) % Baso % (Auto) 1.0 (0.0-2.0) % Neut # (Auto) 2.4 (1.8-7.7) th/mm3 Lymph # (Auto) 3.0 (1.0-4.8) th/mm3 [place] # (Auto) 0.4 (0.0-0.9) th/mm3 Eos # (Auto) 0.3 (0.0-0.4) th/mm3 Baso # (Auto) 0.1 (0.0-0.2) th/mm3 WBC Differential . Differential Comment Auto diff final Sodium 141 (136-145) meq/L Potassium 4.3 (3.5-5.1) meq/L Chloride 113 H (98-107) meq/L Carbon Dioxide 22.4 (21.0-32.0) meq/L Anion Gap 6 (5-15) meq/L BUN 10 (7-18) mg/dL Creatinine 1.11 H (0.50-1.00) mg/dL Estimated GFR 70 L (>89) mL/min POC Glucose 75 (68-110) mg/dl Random Glucose 107 H (74-106) mg/dL Calcium 8.1 L (8.5-10.1) mg/dL Magnesium 2.0 (1.5-2.5) mg/dL Total Bilirubin 0.2 (0.2-1.0) mg/dL AST 11 L (15-37) U/L ALT 19 (10-53) U/L Alkaline Phosphatase 53 (45-117) U/L Troponin I Less than 0.02 L (0.02-0.05) ng/mL Total Protein 6.8 (6.4-8.2) g/dL Albumin 3.5 (3.4-5.0) g/dL Urine Color (Yellw/Straw) Urine Clarity (Clear) Urine pH (5.0-8.5) Ur Specific [place] (1.002-1.035) Urine Protein (Neg-Trace) mg/dL Urine Glucose (UA) (Negative) mg/dL Urine Ketones (Negative) mg/dL Urine Occult Blood (Negative) Urine Nitrate (Negative) Urine Bilirubin (Negative) Urine Urobilinogen (Less than 2) mg/dL Ur Leukocyte Esterase (Negative) Urine RBC (0-3) /hpf Urine WBC (0-5) /hpf Ur Squamous Epith Cells (0-5) /hpf Calcium Oxalate Crystal (None) /hpf Urine Mucus (Occasional) /lpf Micro UA Comment Ur Microscopic Review Urine Culture Comments 08/24/18 08/25/18 08/25/18 Range/Units 17:02 01:26 04:24 WBC 6.3 (4.0-11.0) th/mm3 RBC 3.84 L (4.00-5.30) mil/mm3 Hgb 12.9 (11.6-15.3) gm/dL Hct 38.5 (35.0-46.0) % MCV 100.3 H (80.0-100.0) fL MCH 33.6 (27.0-34.0) pg MCHC 33.6 (32.0-36.0) % RDW 13.1 (11.6-17.2) % Plt Count 222 (150-450) th/mm3 MPV 7.8 (7.0-11.0) fL Neut % (Auto) 44.0 (16.0-70.0) % Lymph % (Auto) 43.2 (9.0-44.0) % [place] % (Auto) 8.1 H (0.0-8.0) % Eos % (Auto) 4.0 (0.0-4.0) % Baso % (Auto) 0.7 (0.0-2.0) % Neut # (Auto) 2.8 (1.8-7.7) th/mm3 Lymph # (Auto) 2.7 (1.0-4.8) th/mm3 [place] # (Auto) 0.5 (0.0-0.9) th/mm3 Eos # (Auto) 0.3 (0.0-0.4) th/mm3 Baso # (Auto) 0.0 (0.0-0.2) th/mm3 WBC Differential . Differential Comment Auto diff final Sodium (136-145) meq/L Potassium (3.5-5.1) meq/L Chloride (98-107) meq/L Carbon Dioxide (21.0-32.0) meq/L Anion Gap (5-15) meq/L BUN (7-18) mg/dL Creatinine (0.50-1.00) mg/dL Estimated GFR (>89) mL/min POC Glucose (68-110) mg/dl Random Glucose (74-106) mg/dL Calcium (8.5-10.1) mg/dL Magnesium (1.5-2.5) mg/dL Total Bilirubin (0.2-1.0) mg/dL AST (15-37) U/L ALT (10-53) U/L Alkaline Phosphatase (45-117) U/L Troponin I Less than 0.02 L (0.02-0.05) ng/mL Total Protein (6.4-8.2) g/dL Albumin (3.4-5.0) g/dL Urine Color Yellow (Yellw/Straw) Urine Clarity Cloudy H (Clear) Urine pH 5.0 (5.0-8.5) Ur Specific [place] 1.026 (1.002-1.035) Urine Protein 30 H (Neg-Trace) mg/dL Urine Glucose (UA) Negative (Negative) mg/dL Urine Ketones Negative (Negative) mg/dL Urine Occult Blood Negative (Negative) Urine Nitrate Negative (Negative) Urine Bilirubin Negative (Negative) Urine Urobilinogen 2.0 H (Less than 2) mg/dL Ur Leukocyte Esterase Trace H (Negative) Urine RBC 1 (0-3) /hpf Urine WBC 2 (0-5) /hpf Ur Squamous Epith Cells 13 (0-5) /hpf Calcium Oxalate Crystal Few H (None) /hpf Urine Mucus Moderate H (Occasional) /lpf Micro UA Comment Culture not ind Ur Microscopic Review Not Reportable Urine Culture Comments Culture not ind 08/25/18 Range/Units 04:24 WBC (4.0-11.0) th/mm3 RBC (4.00-5.30) mil/mm3 Hgb (11.6-15.3) gm/dL Hct (35.0-46.0) % MCV (80.0-100.0) fL MCH (27.0-34.0) pg MCHC (32.0-36.0) % RDW (11.6-17.2) % Plt Count (150-450) th/mm3 MPV (7.0-11.0) fL Neut % (Auto) (16.0-70.0) % Lymph % (Auto) (9.0-44.0) % [place] % (Auto) (0.0-8.0) % Eos % (Auto) (0.0-4.0) % Baso % (Auto) (0.0-2.0) % Neut # (Auto) (1.8-7.7) th/mm3 Lymph # (Auto) (1.0-4.8) th/mm3 [place] # (Auto) (0.0-0.9) th/mm3 Eos # (Auto) (0.0-0.4) th/mm3 Baso # (Auto) (0.0-0.2) th/mm3 WBC Differential Differential Comment Sodium 142 (136-145) meq/L Potassium 3.7 (3.5-5.1) meq/L Chloride 115 H (98-107) meq/L Carbon Dioxide 22.1 (21.0-32.0) meq/L Anion Gap 5 (5-15) meq/L BUN 6 L (7-18) mg/dL Creatinine 0.92 (0.50-1.00) mg/dL Estimated GFR 87 L (>89) mL/min POC Glucose (68-110) mg/dl Random Glucose 94 (74-106) mg/dL Calcium 8.2 L (8.5-10.1) mg/dL Magnesium (1.5-2.5) mg/dL Total Bilirubin 0.3 (0.2-1.0) mg/dL AST 18 (15-37) U/L ALT 26 (10-53) U/L Alkaline Phosphatase 59 (45-117) U/L Troponin I Less than 0.02 L (0.02-0.05) ng/mL Total Protein 6.3 L (6.4-8.2) g/dL Albumin 3.4 (3.4-5.0) g/dL Urine Color (Yellw/Straw) Urine Clarity (Clear) Urine pH (5.0-8.5) Ur Specific [place] (1.002-1.035) Urine Protein (Neg-Trace) mg/dL Urine Glucose (UA) (Negative) mg/dL Urine Ketones (Negative) mg/dL Urine Occult Blood (Negative) Urine Nitrate (Negative) Urine Bilirubin (Negative) Urine Urobilinogen (Less than 2) mg/dL Ur Leukocyte Esterase (Negative) Urine RBC (0-3) /hpf Urine WBC (0-5) /hpf Ur Squamous Epith Cells (0-5) /hpf Calcium Oxalate Crystal (None) /hpf Urine Mucus (Occasional) /lpf Micro UA Comment Ur Microscopic Review Urine Culture Comments Imaging Data Attestation: I personally reviewed and interpreted this imaging study as follows : Radiologist's impression: Carotid Doppler Study 08/24/18 00:00 CONCLUSION: 1. Right Internal Carotid Artery: No significant stenosis or atherosclerotic plaque is visualized. 2. Left Internal Carotid Artery: No significant stenosis or atherosclerotic plaque is visualized. Chest X-Ray 08/24/18 15:41 CONCLUSION: 1. No acute cardiopulmonary disease. ECG Data EKG Prior to Arrival: No Attestation: I personally reviewed and interpreted this ECG as follows: (EKG shows a sinus rhythm with a rate of 61. No acute STT wave changes.) Interpretation: EKG shows sinus rhythm with no sign of acute ischemia and arrhythmia read by me and attending. Discharge Plan Discharge Disposition Patient Disposition: 32 Still Patient Discharge Condition Condition: Stable Discharge Order Discharge Orders: Discharge Order (Routine); Ordered 08/25/18 Ordered By: Shirlene Montalvo ED Use Only Admit Order (Routine); Ordered 08/24/18 Ordered By: Dewayne Giles Discharge Details Diagnosis: Syncope Physicians Team ED Provider: Shanna Prince ED Midlevel Provider: Dewayne Giles Primary Care Provider: Primary Care Sarai Thomas Attending Provider: Syl Combs Status ED Status: Left Department Discharge Information Discharge Date/Time: 08/24/18 20:32
--- NOTE | 2018-08-24 16:05 | XR ---
EXAM DATE: 08/24/2018 4:02 PM EST AGE/SEX: 32 years / Female INDICATIONS: Short of breath CLINICAL DATA: This is the patient's initial encounter. Patient reports that signs and symptoms have been present for 1 day and indicates a pain score of 0/10. MEDICAL/SURGICAL HISTORY: None. Tubal ligation. COMPARISON: [facility] [place] [place] 1V SINGLE AP, 08/10/2018. . FINDINGS: A single AP view of the chest demonstrates the lungs to be symmetrically aerated without evidence of mass, infiltrate or effusion. The cardiomediastinal contours are unremarkable. Osseous structures a re intact. CONCLUSION: 1. No acute cardiopulmonary disease. Electronically signed by: Wolf Gilbert MD 08/24/2018 4:03 PM EST
[2018-08-24 16:08] LABS: Baso # (Auto) 0.1 th/mm3 (0.0-0.2); Eos # (Auto) 0.3 th/mm3 (0.0-0.4); Eos % (Auto) 4.2 % (0.0-4.0); Lymph % (Auto) 48.6 % (9.0-44.0); Mean Corpuscular HGB Conc 35.8 % (32.0-36.0); Mean Corpuscular Hemoglobin 35.7 pg (27.0-34.0); Mean Corpuscular Volume 99.8 fL (80.0-100.0); Mean Platelet Volume 7.4 fL (7.0-11.0); Mono # (Auto) 0.4 th/mm3 (0.0-0.9); Mono % (Auto) 6.4 % (0.0-8.0); Neut # (Auto) 2.4 th/mm3 (1.8-7.7); Neut % (Auto) 39.8 % (16.0-70.0); Platelet Count 248 th/mm3 (150-450); Red Blood Count 3.91 mil/mm3 (4.00-5.30); White Blood Count 6.1 th/mm3 (4.0-11.0)
[2018-08-24 16:46] LABS: Alanine Aminotransferase 19 U/L (10-53); Albumin 3.5 g/dL (3.4-5.0); Anion Gap 6 meq/L (5-15); Aspartate Aminotransferase 11 U/L (15-37); Blood Urea Nitrogen 10 mg/dL (7-18); Calcium 8.1 mg/dL (8.5-10.1); Carbon Dioxide 22.4 meq/L (21.0-32.0); Chloride 113 meq/L (98-107); Glomerular Filtration Rate 70 mL/min (>89); Glucose,Random 107 mg/dL (74-106); Potassium 4.3 meq/L (3.5-5.1); Sodium 141 meq/L (136-145)
[2018-08-24 16:47] LABS: Alkaline Phosphatase 53 U/L (45-117); Total Protein 6.8 g/dL (6.4-8.2)
[2018-08-24 17:11] LABS: Bilirubin,Urine Negative (Negative); Calcium Oxalate Crystals,Urine Few /hpf; Clarity,Urine Cloudy (Clear); Color,Urine Yellow (Yellw/Straw); Glucose,Urine (UA) Negative (Negative); Leukocyte Esterase,Urine Trace (Negative); Mucus,Urine Moderate /lpf (Occasional); Nitrite,Urine Negative (Negative); Specific Gravity,Urine 1.026 (1.002-1.035); Squamous Epithelial Cell,Urine 13 /hpf (0-5)
[2018-08-24] MEDS ORDERED: Sod Chloride 0.9% Inj 1,000 ML IV.SIG SCH (18:00)
--- NOTE | 2018-08-24 19:12 | P.HPIM ---
History of Present Illness Primary Care Physician: No Primary Care Physician History of Present Illness: This patient is a 32 y/o F with a history of suicidal ideation, bipolar disorder , depression, and recent hx of syncope on exertion who presents to the ed after a syncopal episode while at rest today. She says she was having her hair braided and suddenly felt hot, nauseous, and then felt dizzy. She doesn't remember much after that but lost consciousness for a brief moment. During her last hospital visit she was found to be hypotensive and was given fluids then was sent home as per the ED note. She says she had an episode of diarrhea this morning otherwise has been staying hydrated. She denies any chest pain, palpitations, sob, or abd pain. Last menstrual period was second week of Jul, currently not sexually active. No other complaints. 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 - Medical History Medical History: Medical History (Last Updated 08/24/18 @ 15:31 by Soco Flores RN) Bipolar depression Patient denies medical problems - Surgical History Surgical History: Surgical History (Last Reviewed 08/24/18 @ 15:31 by Soco Flores RN) Hx of tubal ligation - Tobacco History Tobacco Use In Past 30 Days: Yes Smoking Status: Current every day smoker Tobacco Type: Cigarettes - Alcohol History How Often Do You Have a Drink Containing Alcohol: Never - Substance Use History Substance History: Active Abuse - Substance Use Type Marijuana Status: Active Route Used: Inhalation Frequency: TODAY, ABOUT 3 HOURS AGO - Travel History Recent Travel in the [facility] Within the Last 8 Weeks: No Recent Travel Out of the Country Within the Last 8 Weeks: No - Immunization History Tetanus Immunization: Unsure Medications and Allergies Allergies Allergy/AdvReac Type Severity Reaction Status Date / Time No Known Allergies Allergy Verified 08/24/18 15:34 Home Medications Medication Instructions Recorded Confirmed Type No Known Home Medications 08/24/18 08/24/18 History Exam Vital signs: Vital Signs 08/24/18 15:27 08/24/18 15:34 08/24/18 15:55 Temperature 97.7 F Pulse Rate 64 74 70 Respiratory Rate 18 18 16 Blood Pressure 95/61 L 108/60 Pulse Oximetry 98 96 98 08/24/18 15:56 08/24/18 16:00 08/24/18 18:10 Temperature Pulse Rate 63 62 Respiratory Rate 19 16 Blood Pressure 98/54 L 118/71 Pulse Oximetry 98 99 97 Intake & Output 08/24/18 08/24/18 08/25/18 06:59 18:59 06:59 Intake Total 1000 / 1000 Balance 1000 / 1000 Weight 74.843 kg Intake: IV 1000 / 1000 NS Inj 1,000 ML @ Wide Open IV. 1000 / 1000 SIG BOLUS ONE Rx#:[id number] Narrative: alert and oriented x 3 s1 s2 no murmurs rubs or gallops cta b/l soft, nt, nd, normal bowel sounds no edema no neurological deficits. Results - Labs CBC & Chem 7: 08/24/18 16:02 08/24/18 16:02 Labs: Short CBC 08/24/18 Range/Units 16:02 WBC 6.1 (4.0-11.0) th/mm3 Hgb 14.0 (11.6-15.3) gm/dL Hct 39.0 (35.0-46.0) % Plt Count 248 (150-450) th/mm3 BMP 08/24/18 16:02 Sodium 141 Potassium 4.3 Chloride 113 H Carbon Dioxide 22.4 BUN 10 Creatinine 1.11 H Calcium 8.1 L Cardiac Enzymes 08/24/18 Range/Units 16:02 Troponin I Less than 0.02 L (0.02-0.05) ng/mL Liver Function 08/24/18 Range/Units 16:02 Total Bilirubin 0.2 (0.2-1.0) mg/dL AST 11 L (15-37) U/L ALT 19 (10-53) U/L Alkaline Phosphatase 53 (45-117) U/L Albumin 3.5 (3.4-5.0) g/dL Urine 08/24/18 Range/Units 17:02 Urine Color Yellow (Yellw/Straw) Urine Clarity Cloudy H (Clear) Urine pH 5.0 (5.0-8.5) Ur Specific [place] 1.026 (1.002-1.035) Urine Protein 30 H (Neg-Trace) mg/dL Urine Glucose (UA) Negative (Negative) mg/dL - Imaging Impressions Chest X-Ray 08/24/18 15:41 CONCLUSION: 1. No acute cardiopulmonary disease. Caprini VTE Risk Assessment Caprini VTE Risk Assessment: No/Low Risk (score <= 1) Caprini Risk Assessment Model: Point Value = 1 Point Value = 2 Point Value = 3 Point Value = 5 Age 41-60 Minor surgery BMI > 25 kg/m2 Swollen legs Varicose veins or History of unexplained or recurrent spontaneous Oral contraceptives or hormone replacement Sepsis (< 1 month) Serious lung disease, including pneumonia (< 1 month) Abnormal pulmonary function Acute myocardial infarction Congestive heart failure (< 1 month) History of inflammatory bowel disease Medical patient at bed rest Age 61-74 Arthroscopic surgery Major open surgery (> 45 min) Laparoscopic surgery (> 45 min) Malignancy Confined to bed (> 72 hours) Immobilizing plaster cast Central venous access Age >= 75 History of VTE Family history of VTE Factor V Leiden Prothrombin [id number] Lupus anticoagulant Anticardiolipin antibodies Elevated serum homocysteine Heparin-induced thrombocytopenia Other congenital or acquired thrombophilia Stroke (< 1 month) Elective arthroplasty Hip, pelvis, or leg fracture Acute spinal cord injury (< 1 month) Prophylaxis Regimen: Total Risk Factor Score Risk Level Prophylaxis Regimen 0-1 Low Early ambulation 2 Moderate Order ONE of the following: *Sequential Compression Device (SCD) *Heparin 5000 units SQ BID 3-4 Higher Order ONE of the following medications: *Heparin 5000 units SQ TID *Enoxaparin/Lovenox 40 mg SQ daily (WT < 150 kg, CrCl > 30 mL/min) *Enoxaparin/Lovenox 30 mg SQ daily (WT < 150 kg, CrCl > 10-29 mL/min) *Enoxaparin/Lovenox 30 mg SQ BID (WT < 150 kg, CrCl > 30 mL/min) AND/OR *Sequential Compression Device (SCD) 5 or more Highest Order ONE of the following medications: *Heparin 5000 units SQ TID (Preferred with Epidurals) *Enoxaparin/Lovenox 40 mg SQ daily (WT < 150 kg, CrCl > 30 mL/min) *Enoxaparin/Lovenox 30 mg SQ daily (WT < 150 kg, CrCl > 10-29 mL/min) *Enoxaparin/Lovenox 30 mg SQ BID (WT < 150 kg, CrCl > 30 mL/min) AND *Sequential Compression Device (SCD) Assessment and Plan - Plan This patient is a 32 y/o F with a history of suicidal ideation, bipolar disorder , depression, and recent hx of syncope on exertion who presents to the ed after a syncopal episode while at rest today. She says she was having her hair braided and suddenly felt hot, nauseous, and then felt dizzy. She doesn't remember much after that but lost consciousness for a brief moment. During her last hospital visit she was found to be hypotensive and was given fluids then was sent home as per the ED note. She says she had an episode of diarrhea this morning otherwise has been staying hydrated. 1. Syncope concern for arrythmia Patient had similar episode a few weeks ago and was treated in our ED. EKG shows NSR, no abnormalities trop negative CT head a few weeks ago was negative U/S carotids ordered. no seizure like activity, no hx of seizures. Patient will likely need a holter monitor prior to discharge. Continue to monitor on telemetry. 2. Depression/Bipolar Patient says in the past she was on medications. Currently no suicial ideation. She is not on any medications. 3. Tobacco smoking patient counseled on tobacco smoking. No pharmacotherapy as patient is ambulatory.
[2018-08-24] MEDS ORDERED: Sodium Chloride 0.45 % Inj 1,000 ML IV.CONT SCH (20:00)
--- NOTE | 2018-08-24 20:41 | US ---
EXAM DATE: 08/24/2018 8:39 PM EST AGE/SEX: 32 years / Female INDICATIONS: Syncope. CLINICAL DATA: This is the patient's initial encounter. Patient reports that signs and symptoms have been present for 3 weeks and indicates a pain score of 0/10. MEDICAL/SURGICAL HISTORY: . Bipolar depression. Tubal ligation. COMPARISON: No prior exams available for comparison. VELOCITY PARAMETERS: ICA/CCA Ratio: Right 1.1 , Left 1.1 ICA: Right 108 cm/sec, Left 140 cm/sec CCA: Right 101 cm/sec, Left 124 cm/sec ECA: Right 129 cm/sec, Left 115 cm/sec Vertebral: Right 55 cm/sec antegrade, Left 67 cm/sec antegrade FINDINGS: Right Carotid: No significant plaque is visualized.The waveforms are within normal limits. Left Carotid: No significant plaque is visualized. The waveforms are within normal limits. Other: None. CONCLUSION: 1. Right Internal Carotid Artery: No significant stenosis or atherosclerotic plaque is visualized. 2. Left Internal Carotid Artery: No significant stenosis or atherosclerotic plaque is visualized. Electronically signed by: Wolf Gilbert MD 08/24/2018 8:40 PM EST
[2018-08-24] MEDS ORDERED: Bisacodyl 10 MG Supp RECTAL PRN (21:01)
[2018-08-24] MEDS ORDERED: Acetaminophen 325 MG Tablet PO PRN (21:01)
[2018-08-24] MEDS: Sod Chloride 0.9% Inj 1,000 ML IV.CONT SCH (21:44)
[2018-08-25 05:33] LABS: Baso % (Auto) 0.7 % (0.0-2.0); Eos # (Auto) 0.3 th/mm3 (0.0-0.4); Hematocrit 38.5 % (35.0-46.0); Hemoglobin 12.9 gm/dL (11.6-15.3); Lymph # (Auto) 2.7 th/mm3 (1.0-4.8); Lymph % (Auto) 43.2 % (9.0-44.0); Mean Corpuscular HGB Conc 33.6 % (32.0-36.0); Mean Corpuscular Hemoglobin 33.6 pg (27.0-34.0); Mean Corpuscular Volume 100.3 fL (80.0-100.0); Mean Platelet Volume 7.8 fL (7.0-11.0); Mono # (Auto) 0.5 th/mm3 (0.0-0.9); Mono % (Auto) 8.1 % (0.0-8.0); Neut # (Auto) 2.8 th/mm3 (1.8-7.7); Platelet Count 222 th/mm3 (150-450); Red Blood Count 3.84 mil/mm3 (4.00-5.30); Red Cell Distribution Width 13.1 % (11.6-17.2); White Blood Count 6.3 th/mm3 (4.0-11.0)
[2018-08-25 05:53] LABS: Albumin 3.4 g/dL (3.4-5.0); Anion Gap 5 meq/L (5-15); Aspartate Aminotransferase 18 U/L (15-37); Blood Urea Nitrogen 6 mg/dL (7-18); Calcium 8.2 mg/dL (8.5-10.1); Carbon Dioxide 22.1 meq/L (21.0-32.0); Chloride 115 meq/L (98-107); Glomerular Filtration Rate 87 mL/min (>89); Glucose,Random 94 mg/dL (74-106); Potassium 3.7 meq/L (3.5-5.1); Sodium 142 meq/L (136-145)
[2018-08-25 05:55] LABS: Alanine Aminotransferase 26 U/L (10-53)
[2018-08-25 05:59] LABS: Alkaline Phosphatase 59 U/L (45-117); Total Protein 6.3 g/dL (6.4-8.2)
[2018-08-25] MEDS: Sod Chloride 0.9% Inj 1,000 ML IV.CONT SCH (07:31)
[2018-08-25 08:40] VITALS: BP 112/67; PULSE 60; RESP 18; TEMP 98.6; O2SAT 99
[2018-08-25] MEDS ORDERED: Senna/Docusate Sodium 8.6/50 MG Tablet PO SCH (09:00)
--- NOTE | 2018-08-25 11:32 | P.DS ---
Date of admission: 08/24/18 18:28 Primary care physician: No Primary Care Physician Attending physician on discharge: Syl Combs Anticipated date of discharge: 08/25/18 Brief History from admission: This patient is a 32 y/o F with a history of suicidal ideation, bipolar disorder , depression, and recent hx of syncope on exertion who presents to the ed after a syncopal episode while at rest today. She says she was having her hair braided and suddenly felt hot, nauseous, and then felt dizzy. She doesn't remember much after that but lost consciousness for a brief moment. During her last hospital visit she was found to be hypotensive and was given fluids then was sent home as per the ED note. She says she had an episode of diarrhea this morning otherwise has been staying hydrated. She denies any chest pain, palpitations, sob, or abd pain. Last menstrual period was second week of Jul, currently not sexually active. No other complaints. Family hx noncontributory Patient update on day of discharge: Patient seen sitting up quietly in bed. Family is at bedside. Patient tells me that she has had no further episodes of dizziness or syncope. No chest pain or shortness of breath. She does tell me that she has these episodes about once a month but she cannot link them to any event or action. Discussed following up with cardiology for long-term evaluation of her heart rate-she tells me that she would like to do this as an outpatient if possible. DS: Diagnosis - Discharge Diagnosis (1) Syncope Status: Resolved DS: Summary Hospital Course: This patient is a 32 y/o F with a history of suicidal ideation, bipolar disorder , depression, and recent hx of syncope on exertion who presents to the ed after a syncopal episode while at rest today. EKG shows NSR, no abnormalities. Labs including trop negative. Chest xray neg. CT head a few weeks ago was negative. U/S carotids neg. no repeat episode of syncope overnight. No obvious dysrhythmia on telemetry. Patient is recommended for cardiology follow-up with extended monitoring such as Holter or loop. - Time Spent with Patient Total time spent providing and/or coordinating discharge services: Less than 30 minutes - Quality: VTE Deep Vein Thrombosis/Pulmonary Embolism Present on Admission: No Exam Vital signs: Vital Signs 08/24/18 15:27 08/24/18 15:34 08/24/18 15:55 Temperature 97.7 F Pulse Rate 64 74 70 Respiratory Rate 18 18 16 Blood Pressure 95/61 L 108/60 Pulse Oximetry 98 96 98 08/24/18 15:56 08/24/18 16:00 08/24/18 18:10 Temperature Pulse Rate 63 62 Respiratory Rate 19 16 Blood Pressure 98/54 L 118/71 Pulse Oximetry 98 99 97 08/24/18 21:07 08/25/18 00:00 08/25/18 00:01 Temperature 98.1 F 98.0 F Pulse Rate 56 L 64 55 L Respiratory Rate 16 16 Blood Pressure 107/65 96/54 L Pulse Oximetry 97 96 08/25/18 04:00 08/25/18 08:00 08/25/18 09:00 Temperature 98.1 F 98.6 F Pulse Rate 65 60 60 Respiratory Rate 16 18 Blood Pressure 105/62 112/67 Pulse Oximetry 97 99 Intake & Output 08/24/18 08/25/18 08/25/18 18:59 06:59 18:59 Intake Total 1000 / 1000 1200 / 1200 1900 / 1900 Balance 1000 / 1000 1200 / 1200 1900 / 1900 Weight 74.843 kg Intake: IV 1000 / 1000 1200 / 1200 1900 / 1900 NS Inj 1,000 ML @ 100 mls/hr IV 1000 / 1000 .CONT .Q10H SCOTTY Rx#:[id number] 1/2 Normal Saline Inj 1,000 ML 100 / 100 @ 100 mls/hr IV.CONT .Q10H SCOTTY Rx#:[id number] NS Inj 1,000 ML @ 1000 mls/hr 1000 / 1000 1000 / 1000 IV.SIG BOLUS SCOTTY Rx#:[id number] Rocephin Inj 1,000 MG In NS Inj 100 / 100 100 ML @ 200 mls/hr IV.SIG Q24H SCOTTY Rx#:[id number] Other: # Voids 3 Date of Last Bowel Movement 08/24/18 08/24/18 Narrative: GENERAL: Well-nourished, well-developed adult female in no obvious distress. SKIN: Warm and dry. HEAD: Atraumatic. Normocephalic. CARDIOVASCULAR: Regular rate and rhythm. RESPIRATORY: No accessory muscle use. Clear to auscultation. Breath sounds equal bilaterally. GASTROINTESTINAL: Abdomen soft, non-tender, non-distended. Positive bowel sounds. MUSCULOSKELETAL: Extremities without clubbing, cyanosis, or edema. No obvious deformities. NEUROLOGICAL: Awake and alert. No obvious cranial nerve deficits. Motor grossly within normal limits. Normal speech. PSYCHIATRIC: Appropriate mood and affect; insight and judgment good. Results Procedures completed during hospitalization: none Labs on day of discharge: Labs from last 24 hours 08/25/18 08/25/18 08/25/18 04:24 04:24 01:26 WBC 6.3 RBC 3.84 L Hgb 12.9 Hct 38.5 MCV 100.3 H MCH 33.6 MCHC 33.6 RDW 13.1 Plt Count 222 MPV 7.8 Neut % (Auto) 44.0 Lymph % (Auto) 43.2 Cotton % (Auto) 8.1 H Eos % (Auto) 4.0 Baso % (Auto) 0.7 Neut # (Auto) 2.8 Lymph # (Auto) 2.7 Cotton # (Auto) 0.5 Eos # (Auto) 0.3 Baso # (Auto) 0.0 WBC Differential . Differential Comment Auto diff final Sodium 142 Potassium 3.7 Chloride 115 H Carbon Dioxide 22.1 Anion Gap 5 BUN 6 L Creatinine 0.92 Estimated GFR 87 L POC Glucose Random Glucose 94 Calcium 8.2 L Magnesium Total Bilirubin 0.3 AST 18 ALT 26 Alkaline Phosphatase 59 Troponin I Less than 0.02 L Less than 0.02 L Total Protein 6.3 L Albumin 3.4 Urine Color Urine Clarity Urine pH Ur Specific [place] Urine Protein Urine Glucose (UA) Urine Ketones Urine Occult Blood Urine Nitrate Urine Bilirubin Urine Urobilinogen Ur Leukocyte Esterase Urine RBC Urine WBC Ur Squamous Epith Cells Calcium Oxalate Crystal Urine Mucus Micro UA Comment Ur Microscopic Review Urine Culture Comments 08/24/18 08/24/18 08/24/18 17:02 16:02 16:02 WBC 6.1 RBC 3.91 L Hgb 14.0 Hct 39.0 MCV 99.8 MCH 35.7 H MCHC 35.8 RDW 13.0 Plt Count 248 MPV 7.4 Neut % (Auto) 39.8 Lymph % (Auto) 48.6 H Cotton % (Auto) 6.4 Eos % (Auto) 4.2 H Baso % (Auto) 1.0 Neut # (Auto) 2.4 Lymph # (Auto) 3.0 Cotton # (Auto) 0.4 Eos # (Auto) 0.3 Baso # (Auto) 0.1 WBC Differential . Differential Comment Auto diff final Sodium 141 Potassium 4.3 Chloride 113 H Carbon Dioxide 22.4 Anion Gap 6 BUN 10 Creatinine 1.11 H Estimated GFR 70 L POC Glucose Random Glucose 107 H Calcium 8.1 L Magnesium 2.0 Total Bilirubin 0.2 AST 11 L ALT 19 Alkaline Phosphatase 53 Troponin I Less than 0.02 L Total Protein 6.8 Albumin 3.5 Urine Color Yellow Urine Clarity Cloudy H Urine pH 5.0 Ur Specific [place] 1.026 Urine Protein 30 H Urine Glucose (UA) Negative Urine Ketones Negative Urine Occult Blood Negative Urine Nitrate Negative Urine Bilirubin Negative Urine Urobilinogen 2.0 H Ur Leukocyte Esterase Trace H Urine RBC 1 Urine WBC 2 Ur Squamous Epith Cells 13 Calcium Oxalate Crystal Few H Urine Mucus Moderate H Micro UA Comment Culture not ind Ur Microscopic Review Not Reportable Urine Culture Comments Culture not ind 08/24/18 15:51 WBC RBC Hgb Hct MCV MCH MCHC RDW Plt Count MPV Neut % (Auto) Lymph % (Auto) Cotton % (Auto) Eos % (Auto) Baso % (Auto) Neut # (Auto) Lymph # (Auto) Cotton # (Auto) Eos # (Auto) Baso # (Auto) WBC Differential Differential Comment Sodium Potassium Chloride Carbon Dioxide Anion Gap BUN Creatinine Estimated GFR POC Glucose 75 Random Glucose Calcium Magnesium Total Bilirubin AST ALT Alkaline Phosphatase Troponin I Total Protein Albumin Urine Color Urine Clarity Urine pH Ur Specific [place] Urine Protein Urine Glucose (UA) Urine Ketones Urine Occult Blood Urine Nitrate Urine Bilirubin Urine Urobilinogen Ur Leukocyte Esterase Urine RBC Urine WBC Ur Squamous Epith Cells Calcium Oxalate Crystal Urine Mucus Micro UA Comment Ur Microscopic Review Urine Culture Comments - Impressions ITS Impressions Carotid Doppler Study 08/24/18 00:00 CONCLUSION: 1. Right Internal Carotid Artery: No significant stenosis or atherosclerotic plaque is visualized. 2. Left Internal Carotid Artery: No significant stenosis or atherosclerotic plaque is visualized. Chest X-Ray 08/24/18 15:41 CONCLUSION: 1. No acute cardiopulmonary disease. Discharge Plan - Discharge Disposition Patient Disposition: 01 Discharge Home - Discharge Condition Condition: Stable - Discharge Order Discharge Orders: Discharge Order (Routine); Ordered 08/25/18 Ordered By: Shirlene Montalvo - Physicians Team Primary Care Provider: Primary Care Sarai Thomas Attending Provider: Syl Combs
--- NOTE | 2018-08-25 11:48 | ECHRPT ---
Indication: SYNCOPE CONCLUSIONS Normal left ventricular size. Wall thickness is normal. The left ventricular systolic function is low normal with an estimated ejection fraction of 50%. No regional wall motion abnormalities are present. Trace mitral valve regurgitation. Possible minimal mitral valve prolapse. There is trace tricuspid valve regurgitation. The estimated pulmonary arterial pressure is 28 mmHg. BP: / HR: Rhythm: MEASUREMENTS (Male / Female) Normal Values Technical Quality: 2D ECHO LV Diastolic Diameter PLAX 4.9 cm 4.2 - 5.9 / 3.9 - 5.3 cm LV Systolic Diameter PLAX 3.9 cm IVS Diastolic Thickness 0.8 cm 0.6 - 1.0 / 0.6 - 0.9 cm LVPW Diastolic Thickness 0.6 cm 0.6 - 1.0 / 0.6 - 0.9 cm LV Relative Wall Thickness 0.3 RV Internal Dim ED PLAX 2.0 cm LA Systolic Diameter LX 3.1 cm 3.0 - 4.0 / 2.7 - 3.8 cm DOPPLER Mitral E Point Velocity 80.5 cm/s Mitral A Point Velocity 44.4 cm/s Mitral E to A Ratio 1.8 TR Peak Velocity 209.0 cm/s TR Peak Gradient 17.5 mmHg Right Atrial Pressure 10.0 mmHg Pulmonary Artery Systolic Pressu 27.5 mmHg Right Ventricular Systolic Press 27.5 mmHg FINDINGS LEFT VENTRICLE Normal left ventricular size. Wall thickness is normal. The left ventricular systolic function is low normal with an estimated ejection fraction of 50%. No regional wall motion abnormalities are present. RIGHT VENTRICLE Normal right ventricular size and systolic function. LEFT ATRIUM The left atrial size is normal. RIGHT ATRIUM The right atrial size is normal. ATRIAL SEPTUM Normal atrial septal thickness without atrial level shunting by limited color doppler interrogation. AORTA The aortic root and proximal ascending aorta are normal in size on limited imaging. MITRAL VALVE Trace mitral valve regurgitation. Possible minimal mitral valve prolapse. AORTIC VALVE Trileaflet aortic valve. No aortic valve stenosis or regurgitation. TRICUSPID VALVE There is trace tricuspid valve regurgitation. The estimated pulmonary arterial pressure is 28 mmHg. PULMONARY VALVE Mild pulmonary valve regurgitation. VESSELS The inferior vena cava is normal in size. PERICARDIUM No pericardial effusion. Ken Silver MD (Electronically Signed) Final Date:25 August 2018 11:47
--- NOTE | 2018-08-25 20:17 | ECG ---
Date Performed: 08/24/2018 Time Performed: 15:44:15 PTAGE: 32 years EKG: Sinus rhythm NORMAL ECG PREVIOUS TRACING 08/09/2018 @ 23.46 Since the previous tracing, no significant change no kandis DOCTOR: Ginette Gudino Interpretating Date/Time 08/25/2018 20:06:28
== END 2018-08-25 11:54 | disposition home or self-care (01) ==
LOC: NEDA 15:23 → NEPC 15:23 → NEDA 20:32 → NEPHCDU 20:34
PROVIDERS: ADMIT Family Medicine; ATTEND Family Medicine